=== PATIENT | male | born 1955 | race Caucasian/White ===

== ENCOUNTER → 2017-10-13 | Outpatient (CLI) | payer BC ==
--- NOTE | 2017-10-13 09:31 | MR ---
EXAMINATION TYPE: MR lumbar spine wo con DATE OF EXAM: 10/13/2017 COMPARISON: NONE HISTORY: 62-year-old male with pain and lumbago TECHNIQUE: Multiplanar, multisequence images of the lumbar spine were acquired. FINDINGS: Vertebral body heights are preserved and alignment is maintained. However, there is an S-shaped scoli osis of the spine. Multilevel degenerative disc disease with variable disc desiccation and bulging discs. Moderate disc interspace narrowing at L4-L5 especially towards the right which corresponds to the concavity of the patient's scoliotic curvature. There is associated edematous Modic type I endplate change here and a 1.4 cm inferior endplates most noted which could be acute to subacute. Facet arthropathy mid to lower lumbar spine. Mild heterogeneity of marrow signal without suspicious bone marrow replacement. Conus medullaris is normal. At T12-L1, there is diffuse disc bulge. This impresses into the onto the ventral thecal sac but does not cause significant spinal canal stenosis. Intraforaminal component of the disc bulge is present on the left causing moderate left neural foraminal stenosis. At L1-L2, diffuse disc bulge and mild facet degenerative change. This causes minimal bilateral inferi or neural foraminal narrowing. No significant spinal canal stenosis. At L2-L3, diffuse disc bulge with ligamentum flavum thickening and mild facet degenerative change. Th ere is impression on both the dorsal and ventral thecal sac without significant spinal canal stenosis . There is minimal inferior left and mild right neural foraminal stenosis. At L3-L4, mild diffuse disc bulge and facet degenerative change. Changes result in mild bilateral cecilio roforaminal stenosis without significant spinal canal stenosis. At L4-L5, diffuse disc bulge with ligamentum flavum thickening and hypertrophic facet arthropathy. Ch anges result in mild narrowing of the spinal canal with moderate bilateral neuroforaminal stenosis. D isc material may abut the bilateral traversing L5 nerve roots. At L5-S1, bulging disc is present with facet degenerative change. Disc material appears to abut the t raversing left S1 nerve root. Minimal narrowing of the left neuroforamen. No spinal canal stenosis. No prevertebral or paravertebral soft tissue abnormality. IMPRESSION: 1. S-shaped scoliosis with [id number] degenerative disc disease. Facet arthropathy mid to lower lumbar spine. 2. There is associated edematous Modic type I endplate change towards the right side of concavity at L4-L5. 3. Changes result in a mild spinal canal stenosis at L4-L5. Moderate bilateral neuroforaminal stenosi s on both sides at this level with disc material possibly abutting the bilateral traversing L5 nerve roots as well. 4. Disc material may impinge the traversing left S1 nerve root at the L5-S1 level. 5. Eccentric disc bulge at T12-L1 causes moderate left neural foraminal stenosis.
== END | disposition home or self-care (01) ==
LOC: RADMRIMAIN 07:13
PROVIDERS: ATTEND Family Medicine
DX: M48.061 Spinal stenosis, lumbar region without neurogenic claudication (principal); M99.73 Connective tissue and disc stenosis of intervertebral foramina of lumbar region; M51.25 Other intervertebral disc displacement, thoracolumbar region; M51.36 Other intervertebral disc degeneration, lumbar region; M46.96 Unspecified inflammatory spondylopathy, lumbar region; M41.9 Scoliosis, unspecified
CPT/HCPCS: 72148

== ENCOUNTER → 2018-03-26 | Outpatient (CLI) | payer BC ==
[2018-03-26 12:46] LABS: Appearance,Urine Clear (Clear); Bilirubin,Urine Negative (Negative); Blood,Urine Negative (Negative); Color,Urine Yellow; Glucose,Urine (UA) Negative (Negative); INR 1.1 (<1.2); Ketones,Urine 1+ (Negative); Leukocyte Esterase,Urine Negative (Negative); Nitrite,Urine Negative (Negative); Partial Thromboplastin Time 23.9 sec (22.0-30.0); Protein,Urine Negative (Negative); Prothrombin Time 10.4 sec (9.0-12.0); Urobilinogen,Urine <2.0 mg/dL (<2.0)
[2018-03-26 13:01] LABS: ALT 25 U/L (21-72); AST 27 U/L (17-59); Albumin 4.2 g/dL (3.5-5.0); Alkaline Phosphatase 55 U/L (38-126); Anion Gap 10 mmol/L; Blood Urea Nitrogen 21 mg/dL (9-20); Calcium 9.6 mg/dL (8.4-10.2); Carbon Dioxide 25 mmol/L (22-30); Chloride 106 mmol/L (98-107); Glucose 89 mg/dL (74-99); Potassium 4.6 mmol/L (3.5-5.1); Sodium 141 mmol/L (137-145); Total Bilirubin 0.8 mg/dL (0.2-1.3)
== END | disposition home or self-care (01) ==
LOC: LABPAT 11:23
PROVIDERS: ATTEND Orthopaedic Surgery
DX: Z01.810 Encounter for preprocedural cardiovascular examination (principal); Z01.812 Encounter for preprocedural laboratory examination
CPT/HCPCS: 80053; 81003; 85610; 85730; 87070; 93005

== ENCOUNTER → 2018-03-26 | Outpatient (CLI) | payer BC ==
[2018-03-26 12:42] LABS: Basophils % (A) 0 %; Eosinophils # (A) 0.1 k/uL (0-0.7); Eosinophils % (A) 1 %; HCT 42.6 % (39.0-53.0); HGB 14.3 gm/dL (13.0-17.5); Lymphocytes # (A) 1.2 k/uL (1.0-4.8); Lymphocytes % (A) 22 %; MCH 30.5 pg (25.0-35.0); MCHC 33.7 g/dL (31.0-37.0); MCV 90.5 fL (80.0-100.0); Monocytes # (A) 0.4 k/uL (0-1.0); Monocytes % (A) 7 %; Neutrophils # (A) 3.6 k/uL (1.3-7.7); Neutrophils % (A) 68 %; Platelet Count 208 k/uL (150-450); RBC 4.71 m/uL (4.30-5.90); RDW 12.5 % (11.5-15.5); WBC 5.3 k/uL (3.8-10.6)
[2018-03-26 19:28] LABS: Protein, Total 6.7 g/dL (6.2-8.2)
[2018-03-29 11:49] LABS: Albumin 4.32 g/dL (3.80-4.90); Gamma Globulin 0.76 g/dL (0.70-1.50)
== END | disposition home or self-care (01) ==
LOC: LABWHC1 11:20
PROVIDERS: ATTEND Physical Medicine & Rehabilitation
DX: M51.26 Other intervertebral disc displacement, lumbar region (principal); M51.36 Other intervertebral disc degeneration, lumbar region; M47.816 Spondylosis without myelopathy or radiculopathy, lumbar region; M41.86 Other forms of scoliosis, lumbar region; M16.12 Unilateral primary osteoarthritis, left hip
CPT/HCPCS: 36415; 84165; 85025

== ENCOUNTER 2018-04-27 07:13 | Inpatient (IN) | payer BC ==
[2018-04-20 11:10] VITALS: BMI 25.1
[~2018-04-27 07:13] MED LIST: ACETAMINOPHEN TAB 500 MG TAB PO ONE; MELOXICAM 7.5 MG TAB PO ONE; MIDAZOLAM 2 MG/2 ML VIAL IV PRN; ROPIVACAINE 246.25 MG, EPINEPHrine 0.5 MG, KETOROLAC 30 MG, cloNIDine HCL/PF 80 MCG, WA... MISCELLANE ONE; TRANEXAMIC ACID 1,000 MG in SODIUM CHLORIDE 0.9% 50 ML IVPB ONE; ceFAZolin IN SWFI 2 GM/20 ML SYRINGE IVP ONE; fentaNYL (PF) 50 MCG/ML 2 ML AMP IV PRN
[2018-04-27] MEDS: LACTATED RINGERS 1,000 ML IV SCH ×2 (07:57→14:13)
[2018-04-27] MEDS ORDERED: ONDANSETRON 4 MG/2 ML VIAL IVP ONE (07:59)
[2018-04-27] MEDS ORDERED: SCOPOLAMINE 1.5MG/72HR PATCH TRANSDERM ONE (07:59)
[2018-04-27] MEDS ORDERED: DEXAMETHASONE SOD PHOSPHATE 10 MG/ML 1 ML VIAL IV ONE (07:59)
[2018-04-27] MEDS ORDERED: LIDOCAINE 1% 20 ML VIAL (10MG/ML) FOR IV START INTRADERMA ONE (07:59)
[2018-04-27] MEDS ORDERED: HYDROcodone/APAP 5-325MG 1 EACH TAB PO PRN (09:43)
[2018-04-27] MEDS ORDERED: hydrOXYzine PAMOATE 25 MG CAP PO PRN (09:43)
[2018-04-27] MEDS ORDERED: MAGNESIUM HYDROXIDE 2,400 MG/10 ML CUP PO PRN (09:43)
[2018-04-27] MEDS ORDERED: NALOXONE 0.4 MG/ML 1 ML VIAL IV PRN (09:43)
[2018-04-27] MEDS ORDERED: DIAZEPAM 5 MG TAB PO PRN (09:43)
[2018-04-27] MEDS ORDERED: ONDANSETRON 4 MG/2 ML VIAL IVP PRN (09:43)
[2018-04-27] MEDS ORDERED: HYDROmorphone 1 MG/ML 1 ML SYRINGE IVP PRN ×3 (09:43)
[2018-04-27] MEDS ORDERED: MIDAZOLAM 2 MG/2 ML VIAL ONE (09:57)
[2018-04-27] MEDS ORDERED: TRANEXAMIC ACID 1,000 MG/10 ML VIAL ONE (09:57)
[2018-04-27] MEDS ORDERED: HEPARIN SODIUM,PORCINE 10,000 UNIT/ML 1 ML VIAL ONE (09:57)
[2018-04-27] MEDS ORDERED: SODIUM CHLORIDE 0.9% 100 ML BAG ONE (09:57)
[2018-04-27] MEDS ORDERED: GLYCOPYRROLATE 0.2 MG/ML 2 ML VIAL ONE (09:57)
[2018-04-27] MEDS ORDERED: KETAMINE 10 MG/ML 20 ML VIAL ONE (09:57)
[2018-04-27] MEDS ORDERED: ePHEDrine SULFATE/0.9% NACL/PF 50 MG/5 ML SYRINGE IV ONE (09:57)
[2018-04-27] MEDS ORDERED: ceFAZolin 3,000 MG in SODIUM CHLORIDE 0.9% IRRIGATIO 3,000 ML IRRIGATION ONE (09:57)
[2018-04-27] MEDS ORDERED: PROPOFOL 10 MG/ML 20 ML VIAL IV ONE (09:57)
[2018-04-27] MEDS ORDERED: fentaNYL (PF) 50 MCG/ML 2 ML AMP ONE (09:57)
[2018-04-27] MEDS ORDERED: SODIUM CHLORIDE 0.9% IRRIG 1,000 ML BTL IRRIGATION ONE (09:57)
[2018-04-27] MEDS ORDERED: LACTATED RINGERS 1,000 ML IV ONE (11:16)
--- NOTE | 2018-04-27 11:24 | P.OP ---
Date of Procedure: 04/27/18 Preoperative Diagnosis: Severe osteoarthritis left hip Postoperative Diagnosis: Severe osteoarthritis left hip Procedure(s) Performed: Left total hip arthroplasty with a direct anterior approach Implants: Ahn and nephew Polarstem size 7 standard Ahn & Nephew R3, 3 hole acetabular shell, 58 mm Ahn & Nephew reflection 6.5 mm cancellus screw, 20 mm, 25 mm Ahn & Nephew R3, XLPE 20 acetabular liner Ahn & Nephew Oxinium femoral head 36 m, +8 All components were press-fit. The articulation is Oxinium on polyethylene. Anesthesia: spinal Surgeon: Simone Manley Case Finishing Machine Adjuster #1: Rose Johnston Estimated Blood Loss (ml): 200 (75 mL returned with Cell Saver) Pathology: other (Femoral head) Condition: stable Disposition: PACU Indications for Procedure: After failure of conservative treatment we discussed the surgical and nonsurgical treatment options at length. Patient wishes to proceed with a total hip arthroplasty with a direct anterior approach. Complications specific to this procedure were discussed at length, including but not limited to infection, leg length discrepancy, dislocation, and nerve injury. Patient is aware of all these complications and informed consent was obtained Operative Findings: The operative findings are consistent with severe osteoarthritis of the left hip Description of Procedure: Patient was seen and evaluated in the preoperative area, consent was reviewed, and the surgical site was marked with a skin marker. Patient was then brought to the operating room and given prophylactic antibiotics intravenously. 1 g of Tranexamic acid was also given. A spinal anesthetic was administered by the anesthesia department. The patient was then placed on the Fanwood table with the bony prominences well-padded. The hip area was then prepped and draped in usual sterile fashion. A universal timeout was then performed, which confirmed the patient's name, surgical site, ALLERGIES, and procedure being performed. Next the incision site was located at 1 cm distal and 1 cm lateral to the anterior superior iliac spine. The skin and subcutaneous tissues were sharply incised. Incision was carefully dissected down to the fascia overlying the tensor fascia mitch muscle. This fascia was then incised in line with the incision. Next, using blunt finger dissection, the tensor fascia mitch muscle was dissected off its investing fascia. The muscle was then carefully retracted laterally with a cobra retractor over the lateral neck of the femur. Next, the circumflex vessels were identified and cauterized using the AquaMantis device. The anterior hip capsule was then exposed. The capsule was then opened and an inverted T fashion. Cobra retractors were then placed intracapsularly. The proximal femur was then visualized. The femoral neck was then osteotomized appropriate level above the lesser trochanter. Small amount of traction was placed with the Fanwood table. A small wedge of bone was then removed from the remaining femoral head. Next, using a corkscrew femoral head was easily removed from the acetabulum. On gross visual inspection, the femoral head had complete loss of articular cartilage in multiple periarticular osteophytes. Attention was then turned to the acetabulum. the acetabulum was exposed and any remaining labrum was excised. Sequential reaming of the acetabulum was performed using fluoroscopic guidance. When the appropriate size was reached, a trial was then placed. The position and fit of the trial was checked with fluoroscopy. The trial was then removed. Then, using fluoroscopic guidance, the final implant was impacted at 20 of anteversion and 40 of abduction, and fully seated in the acetabulum. 2 screws were then placed in the acetabulum. Again fluoroscopy was used to check position of the screws. Next, the liner was then impacted, with a 20 elevated liner located in the anterior superior quadrant. Component locking was confirmed. Attention was then directed to the femur. With the aid of the Fanwood table, the femur was externally rotated to approximately 130, extended, and abducted under the opposite leg. A side hook was then placed under the proximal femur, and the side hook elevator was used to elevate the proximal femur. Retractors were then placed. A capsular release was performed, as well as a release of the conjoined tendon, which afforded excellent visualization of the proximal femur. Next, a box osteotome was used to lateralize the proximal femur. A support merchandiser was then used to locate the femoral canal. Sequential broaching was then performed with appropriate size which afforded excellent fixation in the proximal femur. A trial was then placed with appropriate head and neck, and the hip was gently reduced with the aid of the Fanwood table. Fluoroscopy was then used to check position of the components, as well as to ensure equal leg lengths. The hip was then gently dislocated and the trials were then removed. Final implants were then impacted and the hip was again reduced. Final fluoroscopic x-rays confirmed that the components were in anatomic position, as well as equal leg lengths. The hip was also taken through range of motion, and found to be stable. The hip was then copiously irrigated with antibiotic solution with pulsatile lavage. The hip was then irrigated with Irrisept solution. The soft tissues were then injected with a ropivacaine solution, which consisted of 246.25 mg of ropivacaine, 0.5 mg of epinephrine, 30 mg of Toradol, 80 g of clonidine, and 48.45 mL of sterile water, for a total of 100 mL of fluid injected. A second dose of 1 g of Tranexamic acid was also given. the fascia was then closed with 2-0 strata fix suture. The subcutaneous tissue was closed with 3-0 Vicryl. The subcuticular tissue was closed with 3-0 strata fix suture. The skin was then closed with Dermabond glue and a sterile silver dressing. The patient was then transferred to the recovery room in stable condition. The school office assistant RENARD Palomo was required due to the complexity of surgery, and the need for skilled director medical surgical for positioning, draping, exposure, retraction, and closure of the wound.
--- NOTE | 2018-04-27 11:34 | XR ---
Fluoroscopy INDICATION: Pain FINDINGS: Fluoroscopy time: 35 seconds. Images obtained: 2. IMPRESSIONS: 1. Documentation of fluoroscopy.
--- NOTE | 2018-04-27 12:14 | XR ---
EXAMINATION TYPE: XR Hip Limited LT DATE OF EXAM: 04/27/2018 COMPARISON: None HISTORY: Status post left hip replacement TECHNIQUE: AP left hip FINDINGS: Femoral component and acetabular component in place. No acute fractures are evident. Postsu rgical changes are within the hip. IMPRESSION: 1. No acute fractures post left hip replacement.
--- NOTE | 2018-04-27 14:09 | P.CONS ---
History of Present Illness - Reason for Consult Consult date: 04/27/18 Medical management Requesting physician: Simone Manley - Chief Complaint Status post left total hip arthroplasty - History of Present Illness This is a 62-year-old male, patient of [facility]. He has a known past history of ulcer arthritis, hypertension, iron deficiency anemia and hyperlipidemia. Patient underwent a left total hip arthroplasty with a direct anterior approach with Dr. Manley today. Tolerated surgery well with no complications. Estimated blood loss 200 mL. Patient lying in bed comfortably. Reports that his hip pain is tolerable. Denies any chest pain or shortness of breath. Denies any nausea or vomiting, fever, chills, sweats, bowel movement changes or urinary symptoms. We have been consulted for medical management. Review of Systems Please refer to HPI otherwise unremarkable Past Medical History Past Medical History: Hyperlipidemia, Hypertension, Osteoarthritis (OA) History of Any Multi-Drug Resistant Organisms: None Reported Additional Past Surgical History / Comment(s): oral surgery Past Anesthesia/Blood Transfusion Reactions: No Reported Reaction Past Psychological History: Anxiety Smoking Status: Never smoker Past Alcohol Use History: Occasional Past Drug Use History: None Reported - Past Family History Mother Family Medical History: Congestive Heart Failure (CHF), Vascular Disorder Father Family Medical History: Hypertension Medications and Allergies Home Medications Medication Instructions Recorded Confirmed Type Aspirin [Adult Low Dose Aspirin EC] 162 mg PO DAILY 04/20/18 04/27/18 History Cetirizine HCl [Zyrtec] 10 mg PO DAILY 04/20/18 04/27/18 History Ferrous Sulfate [Feosol] 325 mg PO HS 04/20/18 04/27/18 History Ramipril [Altace] 5 mg PO DAILY 04/20/18 04/27/18 History Simvastatin [Zocor] 20 mg PO DAILY 04/20/18 04/27/18 History Acetaminophen/Diphenhydramine 1 tab PO Q4HR PRN 04/27/18 04/27/18 History [Tylenol PM Extra Strength] Allergies Allergy/AdvReac Type Severity Reaction Status Date / Time No Known Allergies Allergy Verified 04/27/18 12:18 Physical Exam Vitals: Vital Signs Temp Pulse Pulse Resp BP BP Pulse Ox 04/27/18 12:05 50 L 16 119/45 95 04/27/18 11:50 69 16 117/56 97 04/27/18 11:35 97.6 F 66 16 125/45 97 04/27/18 07:46 98.6 F 49 L 16 118/62 95 Intake and Output 04/26/18 04/27/18 04/27/18 22:59 06:59 14:59 Intake Total 1771 Output Total 200 Balance 1571 Intake: IV 1151 Oral 620 Output: Estimated Blood Loss 200 Other: Weight 81.739 kg Head normocephalic Neck supple Lungs clear to auscultation bilaterally no wheezing or crackles Heart regular rate and rhythm S1-S2, no rub or gallop Abdomen is soft nontender nondistended positive bowel sounds no hepatosplenomegaly Extremities no edema. LUCIO hose and SCDs in place. Left hip dressing clean dry and intact. Patient is able to wiggle his toes on the left foot. Neuro alert and orientated to 3 Assessment and Plan Assessment: 1. Severe osteoarthritis of the left hip: Status post Left total hip arthroplasty with direct anterior approach. Continue with orthopedic postop orders. Continue DVT prophylaxis with aspirin 325 mg twice a day, LUCIO hose and SCDs. Continue pain control per orthopedic protocol. Continue PT OT 2. Essential hypertension: Blood pressures are stable. Blood pressure 119/45. Depending on how blood pressures look tomorrow we'll restart his Ramipril 3. Hyperlipidemia continue Zocor 4. Iron deficiency anemia continue with the ferrous sulfate 325 mg daily. Monitor CBC closely GI prophylaxis Pepcid and DVT prophylaxis aspirin 325 mg twice a day with SCDs and LUCIO hose Thank you for this consultation. We'll continue to follow along during patient' s hospitalization. Time with Patient: Greater than 30 (Greater than 60% of the total time spent in counseling and coordination of care.I performed an examination of the patient and discussed their management with the physician Bed Control Specialist. I have reviewed the Physician Bed Control Specialist's notes and agree with the documented findings and plan of care)
[2018-04-27] MEDS: SODIUM CHLORIDE 0.9% 1,000 ML IV SCH ×2 (17:12→17:16)
[2018-04-27] MEDS: HYDROcodone/APAP 5-325MG 1 EACH TAB PO PRN (17:16)
[2018-04-27] MEDS ORDERED: SENNOSIDES-DOCUSATE SODIUM 1 EACH TAB PO SCH (21:00)
[2018-04-27] MEDS ORDERED: FERROUS SULFATE 325 MG TAB PO SCH (21:00)
[2018-04-27] MEDS: ASPIRIN 325 MG TAB PO SCH (21:33)
[2018-04-28] MEDS: HYDROcodone/APAP 5-325MG 1 EACH TAB PO PRN ×2 (03:07→12:21)
[2018-04-28] MEDS: SODIUM CHLORIDE 0.9% 1,000 ML IV SCH (03:08)
[2018-04-28 07:48] LABS: ALT 27 U/L (21-72); AST 34 U/L (17-59); Albumin 2.8 g/dL (3.5-5.0); Alkaline Phosphatase 30 U/L (38-126); Anion Gap 3 mmol/L; Blood Urea Nitrogen 16 mg/dL (9-20); Calcium 8.7 mg/dL (8.4-10.2); Carbon Dioxide 25 mmol/L (22-30); Chloride 109 mmol/L (98-107); Glucose 95 mg/dL (74-99); Potassium 4.4 mmol/L (3.5-5.1); Sodium 137 mmol/L (137-145)
[2018-04-28 07:51] LABS: Basophils % (A) 0 %; Eosinophils % (A) 0 %; HCT 31.6 % (39.0-53.0); Lymphocytes # (A) 1.2 k/uL (1.0-4.8); Lymphocytes % (A) 16 %; MCH 31.5 pg (25.0-35.0); MCHC 33.7 g/dL (31.0-37.0); MCV 93.5 fL (80.0-100.0); Mean Platelet Volume 7.8; Monocytes # (A) 0.7 k/uL (0-1.0); Monocytes % (A) 9 %; Neutrophils # (A) 5.4 k/uL (1.3-7.7); Neutrophils % (A) 74 %; Platelet Count 143 k/uL (150-450); RBC 3.37 m/uL (4.30-5.90); RDW 12.5 % (11.5-15.5); WBC 7.4 k/uL (3.8-10.6)
[2018-04-28 07:54] LABS: HGB 10.6 gm/dL (13.0-17.5)
[2018-04-28 08:11] VITALS: BP 106/62; PULSE 54; RESP 12; TEMP 98.5
[2018-04-28] MEDS: ASPIRIN 325 MG TAB PO SCH (08:11)
[2018-04-28] MEDS ORDERED: ATORVASTATIN 10 MG TAB PO SCH (09:00)
[2018-04-28] MEDS ORDERED: MELOXICAM 7.5 MG TAB PO SCH (09:00)
[2018-04-28] MEDS ORDERED: FAMOTIDINE 20 MG TAB PO SCH (09:00)
--- NOTE | 2018-04-28 09:28 | P.DS ---
Providers Date of admission: 04/27/18 07:13 Expected date of discharge: 04/28/18 Attending physician: Simone Manley Consults: 04/27/18 09:43 Consult Physician Routine Consulting Provider: Isabella Connelly Consult Reason/Comments: medical management Do you want consulting provider notified?: Yes Primary care physician: Geni Stewart - Discharge Diagnosis(es) (1) Primary osteoarthritis of left hip Current Visit: Yes Status: Acute (2) S/P total hip arthroplasty Current Visit: Yes Status: Acute Hospital Course: This is a 62-year-old male with known history of degenerative arthritis of the left hip. The patient presents for evaluation. After discussion and consideration patient elects to proceed with total hip arthroplasty. The patient is seen preoperatively by Dr. Manley and medically cleared for surgery by their primary care physician. Patient is admitted to [facility] on 04/27/2018 for total hip arthroplasty. The procedures performed without complication or sequelae. The patient is doing well postoperatively. Labs and vital signs are stable on day of discharge. On day of discharge patient's hip incision is healing well. There is minimal erythema. There is no drainage noted at this time. There is minimal soft tissue swelling to the hip and thigh. Patient has full foot and ankle motion without difficulty or pain. Neurovascular status to the left lower extremity is intact. Patient is discharged home in good condition. Please see med rec for accurate list of home medications. Plan - Discharge Summary Discharge Rx Participant: No New Discharge Prescriptions: New Aspirin 325 mg PO BID #60 tab HYDROcodone/APAP 5-325MG [Ames 5-325] 1 - 2 tab PO Q4-6H PRN #84 tab PRN Reason: Pain Sennosides [Senokot] 1 tab PO BID #60 tablet No Action Ramipril [Altace] 5 mg PO DAILY Ferrous Sulfate [Feosol] 325 mg PO HS Simvastatin [Zocor] 20 mg PO DAILY Aspirin [Adult Low Dose Aspirin EC] 162 mg PO DAILY Cetirizine HCl [Zyrtec] 10 mg PO DAILY Acetaminophen/Diphenhydramine [Tylenol PM Extra Strength] 1 tab PO Q4HR PRN PRN Reason: Pain Discharge Medication List Aspirin [Adult Low Dose Aspirin EC] 162 mg PO DAILY 04/20/18 [History] Cetirizine HCl [Zyrtec] 10 mg PO DAILY 04/20/18 [History] Ferrous Sulfate [Feosol] 325 mg PO HS 04/20/18 [History] Ramipril [Altace] 5 mg PO DAILY 04/20/18 [History] Simvastatin [Zocor] 20 mg PO DAILY 04/20/18 [History] Acetaminophen/Diphenhydramine [Tylenol PM Extra Strength] 1 tab PO Q4HR PRN 12/07 [History] Aspirin 325 mg PO BID #60 tab 04/28/18 [Rx] HYDROcodone/APAP 5-325MG [Ames 5-325] 1 - 2 tab PO Q4-6H PRN #84 tab 04/28/18 [ Rx] Sennosides [Senokot] 1 tab PO BID #60 tablet 04/28/18 [Rx] Follow up Appointment(s)/Referral(s): Simone Manley DO [Doctor of Osteopathic Medicine] - 2 Weeks Activity/Diet/Wound Care/Special Instructions: Weightbearing as tolerated with walker. Leave dressing intact. Dressing may be removed by home care nurse in 10 days. May shower with dressing on. Follow-up with [facility] in 2 weeks, please call with any questions or concerns [phone]. Discharge Disposition: HOME WITH HOME HEALTH SERVICES
[2018-04-28] MEDS: LACTATED RINGERS 1,000 ML IV SCH (10:27)
--- NOTE | 2018-04-28 10:55 | P.PN ---
Subjective Progress Note Date: 04/28/18 This is a 62-year-old male, patient of [facility]. He has a known past history of ulcer arthritis, hypertension, iron deficiency anemia and hyperlipidemia. Patient underwent a left total hip arthroplasty with a direct anterior approach with Dr. Manley today. Tolerated surgery well with no complications. Estimated blood loss 200 mL. Patient lying in bed comfortably. Reports that his hip pain is tolerable. Denies any chest pain or shortness of breath. Denies any nausea or vomiting, fever, chills, sweats, bowel movement changes or urinary symptoms. We have been consulted for medical management. On 04/28/2018 patient is currently sitting up in chair. Patient is complaining of some left hip pain and swelling. Orthopedic services and to evaluate site. No concerns at this time. Patient is eager to go home today. This time patient denies chest pain or shortness of breath. Patient denies nausea vomiting or diarrhea. Patient denies any urinary burning or frequency Objective - Vital Signs Vital signs: Vital Signs Temp 98.5 F 04/28/18 07:00 Pulse 54 L 04/28/18 07:00 Resp 12 04/28/18 07:00 BP 106/62 04/28/18 07:00 Pulse Ox 95 04/28/18 07:00 Intake & Output 04/27/18 04/28/18 04/28/18 18:59 06:59 18:59 Intake Total 2541 225 Output Total 200 Balance 2341 225 Weight 81.739 kg Intake: IV 1151 Intake, IV Titration 150 225 Amount Sodium Chloride 0.9% 1, 150 225 000 ml @ 75 mls/hr IV . [id number] [id number] Rx#:[id number] Oral 1240 Output: Estimated Blood Loss 200 Other: Voiding Method Toilet # Voids 1 1 - Exam Head normocephalic Neck supple Lungs clear to auscultation bilaterally no wheezing or crackles Heart regular rate and rhythm S1-S2, no rub or gallop Abdomen is soft nontender nondistended positive bowel sounds no hepatosplenomegaly Extremities no edema. LUCIO hose and SCDs in place. Left hip dressing clean dry and intact. Slight edema and bruising noted around left hip dressing. Neuro alert and orientated to 3 - Labs CBC & Chem 7: 04/28/18 06:57 11/07/18 06:57 Labs: Abnormal Lab Results - Last 24 Hours (Table) 04/28/18 04/28/18 Range/Units 06:57 06:57 RBC 3.37 L (4.30-5.90) m/uL Hgb 10.6 L D (13.0-17.5) gm/dL Hct 31.6 L (39.0-53.0) % Plt Count 143 L (150-450) k/uL Chloride 109 H (98-107) mmol/L Alkaline Phosphatase 30 L (38-126) U/L Total Protein 5.0 L (6.3-8.2) g/dL Albumin 2.8 L (3.5-5.0) g/dL Assessment and Plan Assessment: 1. Severe osteoarthritis of the left hip: Status post Left total hip arthroplasty with direct anterior approach. Continue with orthopedic postop orders. Continue DVT prophylaxis with aspirin 325 mg twice a day, LUCIO hose and SCDs. Continue pain control per orthopedic protocol. Continue PT OT 2. Essential hypertension: Blood pressures are stable. Blood pressure 119/45. Heart rate in the 50s. Blood pressure 103/50. Will DC ramipril this time. Patient to follow-up closely with PCP in regards to restarting ramipril 3. Hyperlipidemia continue Zocor 4. Iron deficiency anemia continue with the ferrous sulfate 325 mg daily. hemoglobin 10.6. Patient to be maintained on ferrous sulfate. patient to follow-up closely with PCP and consulting providers. Repeat CBC will be ordered for two days GI prophylaxis Pepcid and DVT prophylaxis aspirin 325 mg twice a day with SCDs and LUCIO hose Thank you for this consultation. We'll continue to follow along during patient' s hospitalization. I performed an examination of the patient and discussed their management with the Nurse Practitioner. I have reviewed the Nurse Practitioner's notes and agree with the documented findings and plan of care
== END 2018-04-28 14:01 | disposition home health service (06) | DRG 470 ==
LOC: 2ORMAIN 07:13 → 4SSUR 11:38
PROVIDERS: ADMIT Orthopaedic Surgery; ATTEND Orthopaedic Surgery
PROC: 0SRB06A Replacement of Left Hip Joint with Oxidized Zirconium on Polyethylene Synthetic Substitute, Uncemented, Open Approach (ICD-10-PCS; principal; 2018-04-27 09:15)
DX: M16.12 Unilateral primary osteoarthritis, left hip (principal); I10 Essential (primary) hypertension; E78.5 Hyperlipidemia, unspecified; D50.9 Iron deficiency anemia, unspecified; F41.9 Anxiety disorder, unspecified; R26.9 Unspecified abnormalities of gait and mobility; Z79.82 Long term (current) use of aspirin; Z79.899 Other long term (current) drug therapy; Z82.49 Family history of ischemic heart disease and other diseases of the circulatory system
CPT/HCPCS: 36415; 73501; 80053; 85025; 86850; 86891; 86900; 86901; 88300

== ENCOUNTER → 2019-12-08 | Day surgery (SDC) | payer BC ==
[2019-12-06 10:47] VITALS: BMI 25.5
[~2019-12-08] MED LIST changes: -ACETAMINOPHEN TAB 500 MG TAB PO ONE; +LACTATED RINGERS 1,000 ML IV ONE; +LACTATED RINGERS 1,000 ML IV SCH; -MELOXICAM 7.5 MG TAB PO ONE; -MIDAZOLAM 2 MG/2 ML VIAL IV PRN; +MIDAZOLAM 2 MG/2 ML VIAL ONE; +PROPOFOL 10 MG/ML 20 ML VIAL IV ONE; -ROPIVACAINE 246.25 MG, EPINEPHrine 0.5 MG, KETOROLAC 30 MG, cloNIDine HCL/PF 80 MCG, WA... MISCELLANE ONE; -TRANEXAMIC ACID 1,000 MG in SODIUM CHLORIDE 0.9% 50 ML IVPB ONE; -ceFAZolin IN SWFI 2 GM/20 ML SYRINGE IVP ONE; -fentaNYL (PF) 50 MCG/ML 2 ML AMP IV PRN; +fentaNYL (PF) 50 MCG/ML 2 ML AMP ONE
--- NOTE | 2019-12-08 09:29 | P.GSHP ---
History of Present Illness H&P Date: 12/08/19 Chief Complaint: GERD, screen colonoscopy This a 64-year-old male who has issues with GERD. He presents today for EGD and screening colonoscopy. Past Medical History Past Medical History: Hyperlipidemia, Hypertension, Osteoarthritis (OA), Pneumonia Additional Past Medical History / Comment(s): DDD LOWER BACK, OCCASIONAL GERD, STATES SOME ABDOMEN PAIN, STATES SLOW DIGESTIVE SYSTEM. History of Any Multi-Drug Resistant Organisms: None Reported Past Surgical History: Joint Replacement Additional Past Surgical History / Comment(s): oral surgery, TOTAL LEFT HIP (APR 2018) Past Anesthesia/Blood Transfusion Reactions: No Reported Reaction Past Psychological History: Anxiety Smoking Status: Never smoker Past Alcohol Use History: Occasional Past Drug Use History: None Reported - Past Family History Mother Family Medical History: Congestive Heart Failure (CHF), Vascular Disorder Father Family Medical History: Hypertension Medications and Allergies Home Medications Medication Instructions Recorded Confirmed Type Ferrous Sulfate [Iron (65 MG 325 mg PO DAILY 04/20/18 12/06/19 History Elemental)] Simvastatin [Zocor] 20 mg PO DAILY 04/20/18 12/06/19 History Aspirin [Adult Low Dose Aspirin EC] 162 mg PO DAILY 12/06/19 12/06/19 History Ramipril [Altace] 5 mg PO DAILY 12/06/19 12/06/19 History Allergies Allergy/AdvReac Type Severity Reaction Status Date / Time No Known Allergies Allergy Verified 12/08/19 09:21 Surgical - Exam - General well developed, well nourished, no distress - Eyes PERRL - ENT normal pinna - Neck no masses - Respiratory normal expansion - Cardiovascular Rhythm: regular - Abdomen Abdomen: soft, non tender Assessment and Plan Assessment: GERD. We'll perform EGD and screening colonoscopy
[2019-12-08 09:31] VITALS: RESP 16; TEMP 98.2
--- NOTE | 2019-12-08 09:48 | P.OP ---
Date of Procedure: 12/08/19 Preoperative Diagnosis: GERD Screening colonoscopy Postoperative Diagnosis: Antral gastritis Hiatal hernia Esophagitis Procedure(s) Performed: EGD. Colonoscopy Anesthesia: HERBIE Surgeon: Crispin Dolan Pathology: other (Antrum, esophagus) Condition: stable Disposition: PACU Description of Procedure: The patient's placed on the endoscopy table in the lateral position. He received IV sedation. The gastro-placed oropharynx passed in the esophagus and stomach. Scope then placed through the pylorus. The first and second portion of the duodenum appeared normal. Scope was then brought back the antrum and this appeared mildly inflamed. A biopsies performed. Scope was unretroflexed and remainder of the stomach appeared normal. Patient moderate size hiatal hernia. The GE junction was at 38 cm. The distal esophagus inflamed and a biopsies performed. The proximal esophagus appeared normal. Scope was withdrawn for patient. Next digital rectal exam was performed. There were no abnormalities. Flexible colonoscope was then placed patient anus and passed throughout the entire colon. Ileocecal valve sutures. The cecum, ascending and transverse colon appeared normal. The descending and sigmoid colon was visualized. This appeared normal. Scope was then brought back the rectum and this appeared normal. Scope was withdrawn for patient.
[2019-12-08 09:52] VITALS: PULSE 51
[2019-12-08 10:09] VITALS: BP 126/69
== END ==
LOC: ORWHC2ENDO 09:05
PROVIDERS: ATTEND Surgery
DX: Z12.11 Encounter for screening for malignant neoplasm of colon (principal); K22.9 Disease of esophagus, unspecified; K44.9 Diaphragmatic hernia without obstruction or gangrene; K29.70 Gastritis, unspecified, without bleeding; K21.0 Gastro-esophageal reflux disease with esophagitis; E78.5 Hyperlipidemia, unspecified; I10 Essential (primary) hypertension; M19.90 Unspecified osteoarthritis, unspecified site; M51.36 Other intervertebral disc degeneration, lumbar region; Z87.01 Personal history of pneumonia (recurrent); Z96.642 Presence of left artificial hip joint; F41.9 Anxiety disorder, unspecified; Z82.49 Family history of ischemic heart disease and other diseases of the circulatory system; Z79.899 Other long term (current) drug therapy; Z79.82 Long term (current) use of aspirin
CPT/HCPCS: 88305; 43239; J2250; J3010; J2704; G0121; 45378

== ENCOUNTER → 2023-05-13 | Outpatient (CLI) | payer MEDICARE ==
--- NOTE | 2023-05-13 12:06 | NM ---
EXAMINATION TYPE: NM gastric emptying static DATE OF EXAM: 05/13/2023 COMPARISON: NONE CLINICAL INDICATION: Male, 67 years old with history of K31.84 GASTROPARESIS; Following administration of 1.9 mCi Tc 99m Sulfur Colloid with 4 ounces of eggs, 2 pieces of toast wi th butter & jelly, 8 ounces of water, anterior and posterior projection images of the abdomen were ob tained 10 minutes post ingestion. Patient Emptying Values 1 Hour 44 % (70-10%) 2 Hours 85 % (> 40%) 3 Hours 98 % (> 70%) 4 Hours 100 % (> 90%) Gastroesophageal reflux: None IMPRESSION: Normal gastric emptying times as above. No scintigraphic evidence for gastroparesis.
== END | disposition home or self-care (01) ==
LOC: RADNMMAIN 06:55
PROVIDERS: ATTEND Family Medicine
DX: K31.84 Gastroparesis (principal); K52.9 Noninfective gastroenteritis and colitis, unspecified
CPT/HCPCS: 78264; A9541

== ENCOUNTER → 2024-09-16 | Outpatient (CLI) | payer MEDICARE ==
--- NOTE | 2024-09-16 13:08 | CA ---
Exercise Stress Test Report Name: Adan Vo Exam Date: 09/16/2024 11:45 Exam Location: [place] Stress Ht (in): Wt (lb): BSA: Ordering Phys: Marly Cai DO Referring Phys: Melia Pate PAC Technologist: morris cole Age: 69 Gender: M : 1955 Procedure CPT: Indications: R00.1 bradycardia ICD-10 Codes: Patient History: Abnormal ECG and bradycardia Medications: RAMAPRIL,,,, SIMVASTATIN,,,, BACKAFIN,,, Meds past 24 hrs: Pretest Chest Pain: STRESS TEST Jesse Protocol Exercise Duration (min:sec): 05:[address] Depressions (mm): Angina Score: Saenz Score: Resting HR (bpm): 54 Peak HR (bpm): 140 Resting BP (mmHg): 150 / 73 Peak BP (mmHg): 205 / 76 MPHR: 150 Target HR: 128 % MPHR: 93 METS: 7.1 Total Dose: Peak Dose: Atropine: Double Product: [id number] BP Response: Stress Termination: TARGET HR REACHED/MAX EXERTION Stress Symptoms: NO SYMPTOMS Stress Summary: ECG ANALYSIS Resting ECG: Normal sinus rhythm normal axis normal intervals Stress ECG: Patient exercised on Jesse protocol for 5 minutes achieving 85% of predicted maximal heart rate without chest pain there was [address] segment depression noted in the inferolateral leads CONCLUSIONS Limited exercise tolerance Abnormal stress test by EKG criteria Dr. Wes Morris MD (Electronically Signed) Final Date: 16 September 2024 13:07
== END | disposition home or self-care (01) ==
LOC: RADNMMAIN 11:20
PROVIDERS: ATTEND Family Medicine
DX: R00.1 Bradycardia, unspecified (principal); R94.39 Abnormal result of other cardiovascular function study
CPT/HCPCS: 93017

== ENCOUNTER 2024-09-22 10:52 | Observation (INO) | payer MEDICARE ==
--- NOTE | 2024-09-22 12:36 | ED ---
General Adult HPI <Salvatore Lobo - Last Filed: 09/22/24 14:35> <Juana Reece - Last Filed: 09/22/24 15:46> - General Source: patient Mode of arrival: ambulatory Limitations: no limitations <Steffi Mi - Last Filed: 09/22/24 16:10> - General Chief complaint: Syncope Stated complaint: Syncope Time Seen by Provider: 09/22/24 10:59 - History of Present Illness Initial comments: Patient is a 69-year-old male with past medical history of hypertension who presented to the ER with syncopal episode. Patient states this morning he had an unwitnessed fall from standing at home and approximate downtime to be 30 minutes. Patient states he awoke hunched over. States he must of scratched his right elbow on the table that he felt. Patient states he does have history of sinus bradycardia. Family history significant for sinus bradycardia in his father which required pacemaker and defibrillator placement and his mother had CHF. Patient states he did monitor which recorded events of bradycardia down to 34. He also completed stress test. Patient wants to have appointment with Dr. Gonzalez regarding evaluation for pacemaker. (Steffi Mi) - Related Data Home Medications Medication Instructions Recorded Confirmed Simvastatin [Zocor] 20 mg PO W/SUPPER 04/20/18 09/22/24 ramipriL [Altace] 5 mg PO W/SUPPER 12/06/19 09/22/24 Baclofen 10 - 20 mg PO HS PRN 09/22/24 09/22/24 valACYclovir HCL [Valacyclovir] 1,000 mg PO DAILY PRN 09/22/24 09/22/24 Allergies Allergy/AdvReac Type Severity Reaction Status Date / Time No Known Allergies Allergy Verified 09/22/24 11:38 Review of Systems ROS Other: All systems not noted in ROS Statement are negative. <Salvatore Lobo - Last Filed: 09/22/24 14:35> ROS Other: All systems not noted in ROS Statement are negative. <Juana Reece - Last Filed: 09/22/24 15:46> ROS Other: All systems not noted in ROS Statement are negative. Constitutional: Denies: fever, chills Eyes: Denies: eye pain, eye discharge Respiratory: Denies: cough, dyspnea, wheezes Cardiovascular: Reports: syncope. Denies: chest pain, palpitations, dyspnea on exertion, orthopnea, edema Endocrine: Denies: fatigue Gastrointestinal: Denies: abdominal pain, nausea, vomiting, diarrhea, constipation Genitourinary: Denies: urgency, dysuria, frequency Musculoskeletal: Reports: myalgia (bilateral calf tenderness with palpation) Skin: Denies: rash, lesions Neurological: Denies: headache, weakness, numbness, paresthesias <Steffi Mi Filed: 09/22/24 16:10> ROS Statement: Those systems with pertinent positive or pertinent negative responses have been documented in the HPI. Past Medical History Past Medical History: GERD/Reflux, Hyperlipidemia, Hypertension, Osteoarthritis (OA), Pneumonia Additional Past Medical History / Comment(s): DDD LOWER BACK, OCCASIONAL GERD, STATES SOME ABDOMEN PAIN, STATES SLOW DIGESTIVE SYSTEM change in bowel habits,indigestions.has had a occasional cough last month,. Bradycardia History of Any Multi-Drug Resistant Organisms: None Reported Past Surgical History: Joint Replacement Additional Past Surgical History / Comment(s): oral surgery, TOTAL LEFT HIP (APR 2018) Past Anesthesia/Blood Transfusion Reactions: No Reported Reaction Past Psychological History: No Psychological Hx Reported Smoking Status: Never smoker Past Alcohol Use History: Occasional Past Drug Use History: None Reported - Past Family History Mother Family Medical History: Congestive Heart Failure (CHF), Vascular Disorder Father Family Medical History: Hypertension <Steffi Mi Filed: 09/22/24 16:10> General Exam Limitations: no limitations Head exam: Present: atraumatic, normocephalic Eye exam: Present: normal appearance, PERRL Neck exam: Present: normal inspection. Absent: tenderness Respiratory exam: Present: normal lung sounds bilaterally. Absent: wheezes, rales, rhonchi Cardiovascular Exam: Present: regular rate, normal rhythm, normal heart sounds GI/Abdominal exam: Present: soft, normal bowel sounds. Absent: distended, tenderness, guarding, rebound Extremities exam: Present: calf tenderness (Bilaterally) Neurological exam: Present: alert, oriented X3, CN II-XII intact Psychiatric exam: Present: normal affect, normal mood Skin exam: Present: warm, dry, abrasion (Small abrasion noted on right elbow) <MiSteffi hawley Filed: 09/22/24 16:10> Course Vital Signs 09/22/24 09/22/24 09/22/24 10:55 12:29 13:20 Temperature 97.3 F L Pulse Rate 56 L 51 L Pulse Rate [ 55 L Sitting Scrap Picker] Pulse Rate [ 62 Standing Scrap Picker ] Pulse Rate [ 48 L Supine Scrap Picker] Respiratory 18 18 20 Rate Blood Pressure 132/62 138/64 Blood Pressure 127/63 [Right Arm Sitting] Blood Pressure 143/73 [Right Arm Standing] Blood Pressure 122/62 [Right Arm Supine] O2 Sat by Pulse 96 98 98 Oximetry Medical Decision Making - Lab Data Result diagrams: 09/22/24 12:37 09/22/24 12:37 <Salvatore Lobo - Last Filed: 09/22/24 14:35> - Lab Data Result diagrams: 09/22/24 12:37 09/22/24 12:37 <Juana Reece - Last Filed: 09/22/24 15:46> - Lab Data Result diagrams: 09/22/24 12:37 09/22/24 12:37 - EKG Data EKG shows normal: sinus rhythm, axis, intervals, QRS complexes, ST-T waves Rate: bradycardia <Steffi Mi - Last Filed: 09/22/24 16:10> - Medical Decision Making I personally saw the patient and performed the critical portion of the service. I discussed the patient care with the Dr. Kaminski. I directed management, care planning and final disposition of the patient. This includes, but not limited to, review of all lab work, radiological studies, EKG's, consultations, vital signs, and nursing notes. EKG interpreted by me (3pts min.) @Sinus bradycardia rate of 52. Normal axis. Normal intervals. Normal QRS. Prominent T waves. X-Rays interpreted by me (1 pt min.) @Chest x-ray shows no acute process CT interpreted by me ( 1pt min.) @None U/S interpreted by me (1 pt min.) @Ultrasound without evidence of DVT Critical care time of 0 minutes excluding separately billable procedures was spent in conjunction with critical care activities provided by the Resident and Attending simultaneously. I was present during no procedures for all critical portions of the procedure and as immediately available to furnish service during the entire procedure. Patient with syncopal episode. Patient has history of bradycardia and during a previous Holter monitor heart rate has been as low as 34. Patient is symptom- free at this time. Exam completed. Patient and family updated on concerns. Heart rate is in the low 50s on event management consultant. Patient placed on event management consultant secondary to syncope and bradycardia. (Salvatore Lobo) Was pt. sent in by a medical professional or institution (RENARD Hanks, SHOPPER MARKETING MANAGER, urgent care, hospital, or intermediate...) When possible be specific @ -No Did you speak to anyone other than the patient for history (EMS, parent, family, police, friend...)? What history was obtained from this source @ -No Did you review nursing and triage notes (agree or disagree)? Why? @ -I reviewed and agree with nursing and triage notes Were old charts reviewed (outside hosp., previous admission, EMS record, old EKG, old radiological studies, urgent care reports/EKG's, intermediate records)? Report findings @ -No old charts were reviewed Differential Diagnosis? @ -Differential Syncope: Valvular disease, hypertrophic cardiomyopathy, pulmonary embolism, tamponade, tachycardia, bradycardia, ND, hypovolemia, hemorrhage, dissection, anemia, intracranial hemorrhage, seizure, hypoglycemia, carbon monoxide poisoning, this is not meant to be an all-inclusive list. EKG interpreted by me (3pts min.). @ -Sinus bradycardia rate of 52. Normal axis. Normal intervals. Normal QRS. Prominent T waves. X-rays interpreted by me (1pt min.). @ -None done CT interpreted by me (1pt min.). @ -None done U/S interpreted by me (1pt. min.). @ -Bilateral venous Doppler of lower extremities were negative for DVT What testing was considered but not performed or refused? (CT, X-rays, U/S, labs)? Why? @ -None What meds were considered but not given or refused? Why? @ -None Did you discuss the management of the patient with other professionals (professionals i.e. RENARD Hanks, SHOPPER MARKETING MANAGER, lab, RT, psych nurse, rn social work, tip length checker, teacher, parole or probation officer, outpatient case manager)? Give summary @ -Case discussed with attending ED physician Dr. Lobo. Case was discussed with Dr. Crabtree from [facility] and patient was admitted to inpatient for symptomatic bradycardia. Was smoking cessation discussed for >3mins.? @ -No Was critical care preformed (if so, how long)? @ -No Were there social determinants of health that impacted care today? How? (Homelessness, low income, unemployed, alcoholism, drug addiction, transportation, low edu. Level, literacy, decrease access to med. care, fdc, rehab)? @ -No Was there de-escalation of care discussed even if they declined (Discuss DNR or withdrawal of care, Hospice)? DNR status @ -No What co-morbidities impacted this encounter? (DM, HTN, Smoking, COPD, CAD, Cancer, CVA, ARF, Chemo, Hep., AIDS, mental health diagnosis, sleep apnea, morbid obesity)? @ -None Was patient admitted / discharged? Hospital course, mention meds given and route, prescriptions, significant lab abnormalities, going to OR and other pertinent info. @ -Patient will be admitted for evaluation of pacemaker placement Undiagnosed new problem with uncertain prognosis? @ -No Drug Therapy requiring intensive monitoring for toxicity (Heparin, Nitro, Insulin, Cardizem)? @ -No Were any procedures done? @ -No Diagnosis/symptom? @ -Symptomatic bradycardia with syncopal episode Acute, or Chronic, or Acute on Chronic? @ -Acute Uncomplicated (without systemic symptoms) or Complicated (systemic symptoms)? @ -Uncomplicated Side effects of treatment? @ -No Exacerbation, Progression, or Severe Exacerbation? @ -No Poses a threat to life or bodily function? How? (Chest pain, USA, ND, pneumonia, PE, COPD, DKA, ARF, appy, cholecystitis, CVA, Diverticulitis, Homicidal, Suicidal, threat to staff... and all critical care pts) @ -No (Steffi Mi) - Lab Data Lab Results 09/22/24 09/22/24 09/22/24 Range/Units 12:37 12:37 12:37 WBC 11.4 H (3.8-10.6) k/uL RBC 4.69 (4.30-5.90) m/uL Hgb 14.8 (13.0-17.5) gm/dL Hct 44.8 (39.0-53.0) % MCV 95.5 (80.0-100.0) fL MCH 31.6 (25.0-35.0) pg MCHC 33.1 (31.0-37.0) g/dL RDW 12.7 (11.5-15.5) % Plt Count 202 (150-450) k/uL MPV 9.2 Neutrophils % 88 % Lymphocytes % 6 % Monocytes % 5 % Eosinophils % 0 % Basophils % 0 % Neutrophils # 10.0 H (1.3-7.7) k/uL Lymphocytes # 0.7 L (1.0-4.8) k/uL Monocytes # 0.6 (0-1.0) k/uL Eosinophils # 0.0 (0-0.7) k/uL Basophils # 0.0 (0-0.2) k/uL PT 10.8 (10.0-12.5) sec INR 1.0 (<1.2) APTT 21.3 L (22.0-30.0) sec Sodium 139 (137-145) mmol/L Potassium 4.1 (3.5-5.1) mmol/L Chloride 104 (98-107) mmol/L Carbon Dioxide 24 (22-30) mmol/L Anion Gap 11 mmol/L BUN 15 (9-20) mg/dL Creatinine 0.93 (0.66-1.25) mg/dL Est GFR (CKD-EPI)AfAm >90 (>60 ml/min/1.73 sqM) Est GFR (CKD-EPI)NonAf 83 (>60 ml/min/1.73 sqM) Glucose 119 H (74-99) mg/dL Calcium 9.4 (8.4-10.2) mg/dL Magnesium 2.5 H (1.6-2.3) mg/dL Total Bilirubin 0.7 (0.2-1.3) mg/dL AST 34 (17-59) U/L ALT 21 (4-49) U/L Alkaline Phosphatase 82 (38-126) U/L Total Protein 6.9 (6.3-8.2) g/dL Albumin 4.4 (3.5-5.0) g/dL TSH 2.720 (0.465-4.680) mIU/L Disposition <Salvatore Lobo - Last Filed: 09/22/24 14:35> Is patient prescribed a controlled substance at d/c from ED?: No Time of Disposition: 15:42 Decision to Admit Reason: Admit from EC Decision Date: 09/22/24 Decision Time: 15:42 <Juana Reece - Last Filed: 09/22/24 15:46> <Steffi Mi - Last Filed: 09/22/24 16:10> Clinical Impression: Symptomatic bradycardia Disposition: ADMITTED IP TO THIS HOSP Condition: Stable
--- NOTE | 2024-09-22 13:31 | US ---
EXAMINATION TYPE: US venous doppler duplex LE BI DATE OF EXAM: 09/22/2024 1:18 PM COMPARISON: NONE CLINICAL INDICATION: Male, 69 years old with history of bilateral calf tenderness; syncope, known low heart rate, pain in bilat calfs TECHNIQUE: The lower extremity deep venous system is examined utilizing real time linear array sonog joni with graded compression, color doppler sonography, and spectral doppler. SIDE PERFORMED: Bilat FINDINGS: VESSELS IMAGED: Common Femoral Vein Deep Femoral Vein Greater Saphenous Vein * Femoral Vein Popliteal Vein Small Saphenous Vein * Proximal Calf Veins (* superficial vessels) Right Leg: Negative for DVT, Color Doppler imaging shows patency of the vessels. Spectral waveforms are within normal limits. Left Leg: Negative for DVT, Color Doppler imaging shows patency of the vessels. Spectral waveforms a re within normal limits. IMPRESSION: No ultrasound evidence for deep venous thrombosis. [facility], , 09/22/2024 1:29 PM
[2024-09-22 13:40] LABS: ALT 21 U/L (4-49); AST 34 U/L (17-59); African American GFR (CKD) >90 (>60 ml/min/1.73 sqM); Albumin 4.4 g/dL (3.5-5.0); Alkaline Phosphatase 82 U/L (38-126); Anion Gap 11 mmol/L; Blood Urea Nitrogen 15 mg/dL (9-20); Calcium 9.4 mg/dL (8.4-10.2); Carbon Dioxide 24 mmol/L (22-30); Chloride 104 mmol/L (98-107); Glucose 119 mg/dL (74-99); Magnesium 2.5 mg/dL (1.6-2.3); Non-African American GFR(CKD) 83 (>60 ml/min/1.73 sqM); Potassium 4.1 mmol/L (3.5-5.1); Sodium 139 mmol/L (137-145); Total Bilirubin 0.7 mg/dL (0.2-1.3); Total Protein 6.9 g/dL (6.3-8.2)
[2024-09-22 13:41] LABS: Basophils % (A) 0 %; Eosinophils % (A) 0 %; HCT 44.8 % (39.0-53.0); HGB 14.8 gm/dL (13.0-17.5); Lymphocytes # (A) 0.7 k/uL (1.0-4.8); Lymphocytes % (A) 6 %; MCH 31.6 pg (25.0-35.0); MCHC 33.1 g/dL (31.0-37.0); MCV 95.5 fL (80.0-100.0); Mean Platelet Volume 9.2; Monocytes # (A) 0.6 k/uL (0-1.0); Monocytes % (A) 5 %; Neutrophils % (A) 88 %; Platelet Count 202 k/uL (150-450); RBC 4.69 m/uL (4.30-5.90); RDW 12.7 % (11.5-15.5); WBC 11.4 k/uL (3.8-10.6)
[2024-09-22 13:58] LABS: Partial Thromboplastin Time 21.3 sec (22.0-30.0); Prothrombin Time 10.8 sec (10.0-12.5)
--- NOTE | 2024-09-22 14:24 | XR ---
EXAMINATION TYPE: XR chest 2V DATE OF EXAM: 09/22/2024 2:06 PM COMPARISON: None CLINICAL INDICATION: Male, 69 years old with history of syncope; [facility] TECHNIQUE: XR chest 2V Frontal and lateral views of the chest. FINDINGS: Lungs/Pleura: There is no evidence of pleural effusion, focal consolidation, or pneumothorax. Pulmonary vascularity: Unremarkable. Heart/mediastinum: Cardiomediastinal silhouette is unremarkable. Musculoskeletal: No acute osseous pathology. IMPRESSION: No acute cardiopulmonary disease/process. [facility], , 09/22/2024 2:22 PM
[2024-09-22] MEDS ORDERED: BACLOFEN 10 MG TAB PO PRN (15:04)
[2024-09-22] MEDS ORDERED: NALOXONE 0.4 MG/ML 1 ML VIAL IV PRN (15:46)
--- NOTE | 2024-09-22 16:03 | P.HPIM ---
History of Present Illness H&P Date: 09/22/24 History of present illness: 69-year-old male patient with past medical history significant for hypertension, hyperlipidemia, GERD, osteoarthritis who presented to ED after having a syncopal episode. Patient was following cardiology for evaluation of bradycardia, had a Holter monitor for 24 hours, was noted to have heart rate as low as 34 recently had a stress test on 09/16/2024 which was abnormal no presented with a syncopal episode. Patient reported that he was working in his basement when he suddenly felt disoriented, also felt dizzy for few seconds, then passed out. Patient reported that he might be passed out for about 30 minutes. Patient felt weak afterwards. Denied any tongue bite, loss of bladder or bowel control, denied any confusion afterwards. Patient reported that he runs on the [employer] machine for 15 minutes 3 times weekly, also does bike riding, has been working out for more than 15 years regularly, reported a syncopal episode more than 15 years ago. Patient denied any fever, chills, shortness of breath, productive cough, sore throat, headache, vision changes, chest pain, palpitations, nausea vomiting diarrhea constipation abdominal pain dysuria urgency frequency weakness or numbness of extremities. In the ED patient is afebrile, bradycardic with heart rate 51, respiratory rate 20, blood pressure 138/64, orthostatics negative. Saturating 98% on room air. WBCs 11.4, hemoglobin 14.8, platelet 202. INR 1.0. BMP unremarkable. Liver profile unremarkable. TSH normal. Chest x-ray negative for acute process. EKG showed sinus bradycardia. Assessment and plan: Syncope: Bradycardia: Hypertension Hyperlipidemia Presented with a chief complaint of syncopal episode, found to be bradycardic in the ED. Was following cardiology as outpatient for bradycardia, was being evaluated for pacemaker placement, had a stress test on 09/16/2024 which was abnormal Monitor with telemetry Hold beta-angeli, calcium blockers Cardiology consult DVT prophylaxis SCD Monitor vital signs and labs Labs and medication were reviewed. Continue same treatment. Further recommendations as per clinical course of the patient PHYSICAL EXAMINATION: GENERAL: The patient is A&O x3, NAD HEENT: EOMI, Sclerae anicteric, Moist Mucous membranes Neck: Supple, Non tender, No JVD PULMONARY: Equal breath souds B/L, No wheezing, No crackles. CARDIOVASCULAR: S1, S2 present. No murmurs, rubs, or gallops. ABDOMEN: Soft, nontender, nondistended, normoactive bowel sounds. No guarding or rebound tenderness. MUSCULOSKELETAL: No edema, No cyanosis. No clubbing. Normal ROM. Intact peripheral pulses. NEUROLOGICAL: CN 2-12 grossly intact. No FND REVIEW OF SYSTEMS: CONSTITUTIONAL: No fever, no malaise, no fatigue. HEENT: No recent visual problems or hearing problems. Denied any sore throat. CARDIOVASCULAR: No chest pain, orthopnea, PND, no palpitations, no syncope. PULMONARY: No shortness of breath, no cough, no hemoptysis. GASTROINTESTINAL: No diarrhea, no nausea, no vomiting, no abdominal pain. NEUROLOGICAL: No headaches, no weakness, no numbness. HEMATOLOGICAL: Denies any bleeding or petechiae. GENITOURINARY: Denies any burning micturition, frequency, or urgency. MUSCULOSKELETAL/RHEUMATOLOGICAL: Denies any joint pain, swelling, or any muscle pain. ENDOCRINE: Denies any polyuria or polydipsia. The rest of the 14-point review of systems is negative. Dictation was produced using [employer] dictation software. please excuse any gr ammatical, word or spelling errors. Past Medical History Past Medical History: GERD/Reflux, Hyperlipidemia, Hypertension, Osteoarthritis (OA), Pneumonia Additional Past Medical History / Comment(s): DDD LOWER BACK, OCCASIONAL GERD, S TATES SOME ABDOMEN PAIN, STATES SLOW DIGESTIVE SYSTEM change in bowel habits,indigestions.has had a occasional cough last month,. Bradycardia History of Any Multi-Drug Resistant Organisms: None Reported Past Surgical History: Joint Replacement Additional Past Surgical History / Comment(s): oral surgery, TOTAL LEFT HIP (APR 2018) Past Anesthesia/Blood Transfusion Reactions: No Reported Reaction Past Psychological History: No Psychological Hx Reported Smoking Status: Never smoker Past Alcohol Use History: Occasional Past Drug Use History: None Reported - Past Family History Mother Family Medical History: Congestive Heart Failure (CHF), Vascular Disorder Father Family Medical History: Hypertension Medications and Allergies Home Medications Medication Instructions Recorded Confirmed Type Simvastatin [Zocor] 20 mg PO W/SUPPER 04/20/18 09/22/24 History ramipriL [Altace] 5 mg PO W/SUPPER 12/06/19 09/22/24 History Baclofen 10 - 20 mg PO HS PRN 09/22/24 09/22/24 History valACYclovir HCL [Valacyclovir] 1,000 mg PO DAILY PRN 09/22/24 09/22/24 History Allergies Allergy/AdvReac Type Severity Reaction Status Date / Time No Known Allergies Allergy Verified 09/22/24 11:38 Physical Exam Vitals: Vital Signs Temp Pulse Pulse Pulse Pulse Resp BP 09/22/24 13:20 51 L 20 138/64 09/22/24 12:29 55 L 62 48 L 18 09/22/24 10:55 97.3 F L 56 L 18 132/62 BP BP BP Pulse Ox 09/22/24 13:20 98 09/22/24 12:29 127/63 143/73 122/62 98 09/22/24 10:55 96 Intake and Output 09/22/24 09/22/24 09/22/24 06:59 14:59 22:59 Other: Weight 75.75 kg Results CBC & Chem 7: 09/22/24 12:37 09/22/24 12:37 Labs: Abnormal Lab Results - Last 24 Hours (Table) 09/22/24 09/22/24 09/22/24 Range/Units 12:37 12:37 12:37 WBC 11.4 H (3.8-10.6) k/uL Neutrophils # 10.0 H (1.3-7.7) k/uL Lymphocytes # 0.7 L (1.0-4.8) k/uL APTT 21.3 L (22.0-30.0) sec Glucose 119 H (74-99) mg/dL Magnesium 2.5 H (1.6-2.3) mg/dL
[2024-09-22] MEDS: ACETAMINOPHEN TAB 500 MG TAB PO PRN (17:48)
[2024-09-22] MEDS: lisinopriL 20 MG TAB PO SCH (17:49)
[2024-09-22] MEDS: ATORVASTATIN 10 MG TAB PO SCH (17:49)
[2024-09-23] MEDS ORDERED: NITROGLYCERIN SL TABS 0.4 MG TAB SUBLINGUAL PRN (09:43)
[2024-09-23] MEDS ORDERED: ALPRAZolam 0.25 MG TAB PO PRN (09:43)
[2024-09-23] MEDS ORDERED: ALPRAZolam 0.5 MG TAB PO PRN (09:43)
[2024-09-23] MEDS: ATORVASTATIN 80 MG TAB PO STA ×2 (09:55→10:02)
[2024-09-23] MEDS: ASPIRIN 325 MG TAB PO STA ×2 (09:55→10:02)
[2024-09-23] MEDS: SODIUM CHLORIDE 0.9% 1,000 ML IV ONE (10:30)
[2024-09-23] MEDS: fentaNYL (PF) 50 MCG/ML 2 ML AMP IVP ONE (10:30)
[2024-09-23] MEDS: MIDAZOLAM 2 MG/2 ML VIAL IVP ONE (10:30)
[2024-09-23] MEDS: LIDOCAINE 1% INJ 10MG/ML (20 ML MDV) SQ ONE ×2 (10:33→10:34)
[2024-09-23] MEDS: HEPARIN SODIUM,PORCINE (1 ML) 2,500 UNIT in SODIUM CHLORIDE 0.9% 250 ML IRRIGATION PRN (10:37)
[2024-09-23] MEDS: HEPARIN SODIUM,PORCINE 10,000 UNIT in SODIUM CHLORIDE 0.9% 1,000 ML IRRIGATION PRN (10:37)
[2024-09-23] MEDS: VERAPAMIL 2.5 MG/ML 2 ML AMP INTRAARTER ONE (10:40)
[2024-09-23] MEDS: HEPARIN SODIUM 1,000 UN/ML (10ML VL) IV ONE (10:43)
--- NOTE | 2024-09-23 11:03 | P.CRDCN ---
History of Present Illness History of present illness: HISTORY OF PRESENT ILLNESS: This is a 69-year-old male with a past medical history significant for hypertension and hyperlipidemia. 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 We have been asked to see the patient in consultation for bradycardia. Patient examined at the bedside. Patient presented to the hospital after having a syncopal episode at home. Patient states he was in the basement cleaning out a cat litter box when he got dizzy and passed out. He thinks that he was out for 30 minutes. He states when he woke up he felt achy. He denies any chest pain or shortness of breath. Denies any dizziness or lightheadedness at the time of examination. Denies any palpitations. Patient states he has always had a low heart rate. He recently underwent a 24-hour Holter monitor by his primary care physician and was told his heart rate was were in the 30s. DIAGNOSTICS: - EKG reveals sinus bradycardia with no signs of acute ischemia. No high grade AV block. - Chest xray negative for acute process. - Venous Doppler: Negative for DVT bilaterally - Laboratory data: WBC 11.4. Hemoglobin 14.8. Platelet count 202. Sodium 139. Potassium 4.1. BUN 15. Creatinine 0.93. Magnesium 2.5. TSH 2.720. - Current home cardiac medications include ramipril 5 mg daily and simvastatin 20 mg daily. - No previous echocardiogram noted in EMR - Patient underwent stress testing in August 2024 revealing abnormal stress stress test by EKG criteria with [address] depression noted in inferior lateral leads. REVIEW OF SYSTEMS: At the time of my exam: CONSTITUTIONAL: Denies fever or chills. HEENT: Denies blurred vision, vision changes, or eye pain. Denies hemoptysis CARDIOVASCULAR: Denies chest pain. Denies orthopnea. Denies PND. Denies palpitations RESPIRATORY: Denies shortness of breath. GASTROINTESTINAL: Denies abdominal pain. Denies nausea or vomiting. HEMATOLOGIC: Denies bleeding disorders. GENITOURINARY: Denies any blood in urine. SKIN: Denies pruitis. Denies rash. PHYSICAL EXAM: VITAL SIGNS: Reviewed. GENERAL: Well-developed in no acute distress. HEENT: Head is normocephalic. Pupils are equal, round. Sclerae anicteric. Mucous membranes of the mouth are moist. Neck supple. No JVD or thyromegaly LUNGS: Respirations even and unlabored. Lungs essentially clear to auscultation bilaterally. HEART: Regular rate and rhythm. S1 and S2 heard. ABDOMEN: Soft. Nondistended. Nontender. EXTREMITIES: Normal range of motion. No clubbing or cyanosis. Peripheral pulses intact. No lower extremity edema NEUROLOGIC: Awake and alert. Oriented x 3. ASSESSMENT: Syncope Sinus bradycardia with no significant high-grade AV block Recent abnormal stress test, August [address] depression in inferior lateral leads Hypertension Hyperlipidemia PLAN: Obtain 2D echo to assess cardiac structure and function Obtain records of Holter monitor from patient's PCP Check lipid panel and hemoglobin A1c Add aspirin 81 mg daily Recommend cardiac catheterization today due to recent abnormal stress test. Patient is agreeable. Patient to undergo cardiac catheterization today with Dr. Ridley Further recommendations pending patient course Nurse practitioner note has been reviewed by physician. Signing provider agrees with the documented findings, assessment, and plan of care documented by RADIOLOGIC TECHNOLOGY PROGRAM DIRECTOR as a scribe. Past Medical History Past Medical History: GERD/Reflux, Hyperlipidemia, Hypertension, Osteoarthritis (OA), Pneumonia Additional Past Medical History / Comment(s): DDD LOWER BACK, OCCASIONAL GERD, bradycardia History of Any Multi-Drug Resistant Organisms: None Reported Past Surgical History: Joint Replacement Additional Past Surgical History / Comment(s): oral surgery, TOTAL LEFT HIP (APR 2018) Past Anesthesia/Blood Transfusion Reactions: No Reported Reaction Past Psychological History: No Psychological Hx Reported Smoking Status: Never smoker Past Alcohol Use History: Occasional Past Drug Use History: None Reported - Past Family History Mother Family Medical History: Congestive Heart Failure (CHF), Vascular Disorder Father Family Medical History: Hypertension Medications and Allergies Home Medications Medication Instructions Recorded Confirmed Type Simvastatin [Zocor] 20 mg PO W/SUPPER 04/20/18 09/22/24 History ramipriL [Altace] 5 mg PO W/SUPPER 12/06/19 09/22/24 History Baclofen 10 - 20 mg PO HS PRN 09/22/24 09/22/24 History valACYclovir HCL [Valacyclovir] 1,000 mg PO DAILY PRN 09/22/24 09/22/24 History Allergies Allergy/AdvReac Type Severity Reaction Status Date / Time No Known Allergies Allergy Verified 09/22/24 11:38 Physical Exam Vitals: Vital Signs Temp Pulse Pulse Pulse Pulse Pulse Resp 09/23/24 03:37 98.1 F 84 19 09/23/24 02:00 50 L 09/22/24 23:46 98.1 F 56 L 18 09/22/24 20:00 55 L 09/22/24 19:40 99.4 F 55 L 16 09/22/24 19:02 99.0 F 60 18 09/22/24 18:14 98.7 F 57 L 16 09/22/24 13:20 51 L 20 09/22/24 12:29 55 L 62 48 L 18 09/22/24 10:55 97.3 F L 56 L 18 BP BP BP BP BP Pulse Ox 09/23/24 03:37 106/58 97 09/23/24 02:00 09/22/24 23:46 109/61 97 09/22/24 20:00 09/22/24 19:40 137/62 97 09/22/24 19:02 154/63 98 09/22/24 18:14 129/64 98 09/22/24 13:20 138/64 98 09/22/24 12:29 127/63 143/73 122/62 98 09/22/24 10:55 132/62 96 Intake and Output 09/22/24 09/23/24 09/23/24 22:59 06:59 14:59 Other: Voiding Method Toilet Toilet # Voids 1 Weight 75.75 kg 79.5 kg Results 09/22/24 12:37 09/22/24 12:37 Cardiac Enzymes 09/22/24 Range/Units 12:37 AST 34 (17-59) U/L Coagulation 09/22/24 Range/Units 12:37 PT 10.8 (10.0-12.5) sec APTT 21.3 L (22.0-30.0) sec CBC 09/22/24 Range/Units 12:37 WBC 11.4 H (3.8-10.6) k/uL RBC 4.69 (4.30-5.90) m/uL Hgb 14.8 (13.0-17.5) gm/dL Hct 44.8 (39.0-53.0) % Plt Count 202 (150-450) k/uL Comprehensive Metabolic Panel 09/22/24 Range/Units 12:37 Sodium 139 (137-145) mmol/L Potassium 4.1 (3.5-5.1) mmol/L Chloride 104 (98-107) mmol/L Carbon Dioxide 24 (22-30) mmol/L BUN 15 (9-20) mg/dL Creatinine 0.93 (0.66-1.25) mg/dL Glucose 119 H (74-99) mg/dL Calcium 9.4 (8.4-10.2) mg/dL AST 34 (17-59) U/L ALT 21 (4-49) U/L Alkaline Phosphatase 82 (38-126) U/L Total Protein 6.9 (6.3-8.2) g/dL Albumin 4.4 (3.5-5.0) g/dL Current Medications Generic Name Dose Route Start Last Admin Trade Name Freq PRN Reason Stop Dose Admin Acetaminophen 500 mg 09/22/24 16:04 09/22/24 17:48 Acetaminophen Tab 500 Mg Tab PO 500 mg Q6HR PRN Administration Fever and/ or Pain Atorvastatin Calcium 10 mg 09/22/24 17:30 09/22/24 17:49 Atorvastatin 10 Mg Tab PO 10 mg W/SUPPER RAYA Administration Baclofen 20 mg 09/22/24 15:04 Baclofen 10 Mg Tab PO HS PRN BACK PAIN Lisinopril 20 mg 09/22/24 17:30 09/22/24 17:49 Lisinopril 20 Mg Tab PO 20 mg W/SUPPER RAYA Administration Naloxone HCl 0.2 mg 09/22/24 15:46 Naloxone 0.4 Mg/Ml 1 Ml Vial IV Q2M PRN Opioid Reversal Intake and Output 09/22/24 09/23/24 09/23/24 22:59 06:59 14:59 Other: Voiding Method Toilet Toilet # Voids 1 Weight 75.75 kg 79.5 kg 09/22/24 12:37 09/22/24 12:37
--- NOTE | 2024-09-23 11:12 | P.CARDCATH ---
Date of Procedure: 09/23/24 Description of Procedure: DIAGNOSTIC CORONARY ANGIOGRAPHY and LEFT HEART CATH REPORT PROCEDURES PERFORMED: Left heart catheterization Selective coronary angiography Moderate conscious sedation 24 mins [Ultrasound assisted] Right radial access INDICATION: Abnormal stress test, syncope, symptomatic bradycardia BRIEF HPI: Patient is a 69-year-old male who has been dealing with low heart rates and some concerns of symptomatic bradycardia. For this he had a treadmill stress test on outpatient basis last week which showed stress-induced [address] depressions in inferior and lateral leads. He was able to achieve 7.1 METS. His resting heart rate was in 50s, and patient had appropriate chronotropic competence. Because of abnormal stress test and now presenting to the hospital with symptoms of syncope we offered to perform the cardiac catheterization to rule out any left main disease. CONSENT: I have explained the procedural steps of above-mentioned procedures in layman's terms to the patient. I discussed the risks (including but not limited to stroke, emergent vascular or cardiac surgery or ), benefits and alternative therapies for the above-mentioned procedure. I discussed the risks of sedation/analgesia and blood product administration (if indicated). The patient has indicated understanding and acceptance of these risks. Conscious Sedation: Patient's ECG, heart rate, blood pressure, pulse oximetry were monitored throughout the duration of procedure under my direct supervision. 1 mg Versed and 50 mcg Fentanyl were used for induction of moderate conscious sedation. Total duration of moderate concious sedation 24 minutes. PROCEDURAL DETAILS: Patient was prepped and draped in sterile fashion. 1% lidocaine was infiltrated over the right radial artery. Right radial access was obtained via modified seldinger technique. [Ultrasound was used for radial access]. Medications: 5mg of verapamil was administed in the radial sheet. 5000 Units of Heparin was administed once the catheter reached the aortic root Wires and Catheter used: J wire was advanced under fluroscopy to get to aortic root. 5 pashto JR 4 diagnostic catheter was utilized obtain left ventricular pressure and pressure gradint across aortic valve. 5 pashto JR 4 diagnostic catheter was used to selectively engage the right coronary ostium. 5 pashto JL4 diagnostic catheter was utilized to selectively engage the left coronary ostium. Angiographic images were reviewed in detail. Catheter and wire were removed. Radial sheet was flushed. The right radial sheath was removed and a TR band was placed. Patent hemostasis was achieved. The patient tolerated the procedure well. Patient was transported back to the post catheterization holding area in stable condition. TECHNICAL DETAILS Total radiation: 148 mGy Total fluro time: 3.7 minutes Total contrast used: Isovue 50 mL Complications: [none] Estimated Blood loss: less than 15 ml HEMODYNAMICS: Aortic Pressure: 119/60 mmHg. LV pressure: 118/5 mmHg. LVEDP 15 mmHg. There was no significant gradient across the aortic valve. SELECTIVE CORONARY ARTERIOGRAPHY: LEFT MAIN: The left main is short and large caliber vessel. It bifurcates into the LAD and circumflex. Left main appears angiographically normal. LEFT ANTERIOR DESCENDING CORONARY ARTERY: LAD is a large caliber vessel reaches up to the apex. Proximal LAD appears angiographically normal. Mid LAD appears angiographically normal. Distal LAD appears angiographically normal. Mid LAD gives rise to 2 medium size diagonal branches which appear angiographically patent. LEFT CIRCUMFLEX CORONARY ARTERY: It is nondominant vessel. Left circumflex is a moderate caliber vessel. It appears angiographically normal. Proximal LCx is gives rise to medium size OM1 branch which appears angiographically patent. RIGHT CORONARY ARTERY: Dominant vessel. The right coronary artery is a very la rge caliber vessel which gives PDA and PLV branch. RCA, PDA and PL branch appears angiographically patent. IMPRESSION: Angiographically normal coronary arteries as described above. Normal left sided filling pressures Ectopic atrial rhythm with heart rate in mid 50s on twelve-lead ECG in the Fire Protection Equipment Technician PLAN: 125 cc/h for 4 hours Continue telemetry monitoring Performing Physician Matthew Ridley MD, FACC, RPVI Thank you for allowing [facility] to participate in this patient's care. Feel free to reach out in case of any followup questions.
[2024-09-23] MEDS ORDERED: RX INFO: IV CONTRAST WAS GIVEN 1 EACH MISC MISCELLANE PRN (11:31)
[2024-09-23] MEDS: SODIUM CHLORIDE 0.9% 1,000 ML in EMPTY BAG 1 BAG IV SCH (11:40)
--- NOTE | 2024-09-23 13:45 | P.PN ---
Progress Note - Text Patient is scheduled Thursday at [facility] to molded goods spot picker a 7-day Holter monitor. Patient may come at anytime during business hours to molded goods spot picker monitor.
--- NOTE | 2024-09-23 14:34 | P.PN ---
Subjective Progress Note Date: 09/23/24 Interval History: 69-year-old male patient with past medical history significant for hypertension, hyperlipidemia, GERD, osteoarthritis who presented to ED after having a syncopal episode. Patient was following cardiology for evaluation of bradycardia, had a Holter monitor for 24 hours, was noted to have heart rate as low as 34 recently had a stress test on 09/16/2024 which was abnormal no presented with a syncopal episode. Patient reported that he was working in his basement when he suddenly felt disoriented, also felt dizzy for few seconds, then passed out. Patient reported that he might be passed out for about 30 minutes. Patient felt weak afterwards. Denied any tongue bite, loss of bladder or bowel control, denied any confusion afterwards. Patient reported that he runs on the [employer] machine for 15 minutes 3 times weekly, also does bike riding, has been working out for more than 15 years regularly, reported a syncopal episode more than 15 years ago. Patient denied any fever, chills, shortness of breath, productive cough, sore throat, headache, vision changes, chest pain, palpitations, nausea vomiting diarrhea constipation abdominal pain dysuria urgency frequency weakness or nu mbness of extremities. In the ED patient is afebrile, bradycardic with heart rate 51, respiratory rate 20, blood pressure 138/64, orthostatics negative. Saturating 98% on room air. WBCs 11.4, hemoglobin 14.8, platelet 202. INR 1.0. BMP unremarkable. Liver profile unremarkable. TSH normal. Chest x-ray negative for acute process. EKG showed sinus bradycardia. 09/23--patient was seen and examined today. Vital stable, heart rate in the 50s, patient asymptomatic. Underwent cardiac catheterization today which showed normal coronary arteries, normal left-sided filling pressure. Discussed with cardiology, recommended echocardiogram and 7 days Holter monitor. Echocardiogram pending. Patient scheduled to spanish moss picker 7-day Holter monitor on Thursday at [facility] office. Assessment and plan: Syncope: Bradycardia: Hypertension Hyperlipidemia Presented with a chief complaint of syncopal episode, found to be bradycardic in the ED. Was following cardiology as outpatient for bradycardia, was being evaluated for pacemaker placement, had a stress test on 09/16/2024 which was abnormal Monitor with telemetry Hold beta-angeli, calcium blockers Cardiology consulted--status post cardiac catheterization 09/23 that showed normal coronary arteries. Awaiting echocardiogram. Outpatient 7-day Holter monitor. DVT prophylaxis SCD Monitor vital signs and labs Labs and medication were reviewed. Continue same treatment. Further recommendations as per clinical course of the patient PHYSICAL EXAMINATION: GENERAL: The patient is A&O x3, NAD HEENT: EOMI, Sclerae anicteric, Moist Mucous membranes Neck: Supple, Non tender, No JVD PULMONARY: Equal breath souds B/L, No wheezing, No crackles. CARDIOVASCULAR: S1, S2 present. No murmurs, rubs, or gallops. ABDOMEN: Soft, nontender, nondistended, normoactive bowel sounds. No guarding or rebound tenderness. MUSCULOSKELETAL: No edema, No cyanosis. No clubbing. Normal ROM. Intact peripheral pulses. NEUROLOGICAL: CN 2-12 grossly intact. No FND Skin: No Rash REVIEW OF SYSTEMS: CONSTITUTIONAL: No fever or chills. CARDIOVASCULAR: No chest pain, palpitations or syncope. PULMONARY: No shortness of breath, no cough, sore throat. GASTROINTESTINAL: No nausea, vomiting, diarrhea, abdominal pain. : No Dysuria, urgency, frequency. Extremities: No edema. NEUROLOGICAL: No headaches, no weakness, or numbness Dictation was produced using Penemarie K Murphy dictation software. please excuse any grammatical, word or spelling errors. Objective - Vital Signs Vital signs: Vital Signs Temp 98.0 F 09/23/24 08:16 Pulse 51 L 09/23/24 14:00 Resp 18 09/23/24 14:00 BP 129/61 09/23/24 13:16 Pulse Ox 95 09/23/24 13:16 FiO2 Intake & Output 09/22/24 09/23/24 09/23/24 18:59 06:59 18:59 Intake Total 10 Balance 10 Weight 75.75 kg 79.5 kg Intake: IV 10 Invasive Line 1 10 Other: Voiding Method Toilet Toilet # Voids 1 - Labs CBC & Chem 7: 09/22/24 12:37 09/22/24 12:37
[2024-09-23 16:52] LABS: Chol/HDL Ratio 2.35 Ratio; LDL Cholesterol,Calculated 80.6 mg/dL (0.0-131.0); VLDL Calculation 17.16 mg/dL (5.00-40.00)
[2024-09-23] MEDS: SODIUM CHLORIDE 0.9% 1,000 ML IV SCH (18:31)
[2024-09-24 08:37] VITALS: PULSE 50
[2024-09-24] MEDS ORDERED: ASPIRIN 81 MG PO SCH (09:00)
[2024-09-24 12:01] VITALS: BP 113/56; RESP 18; TEMP 98
--- NOTE | 2024-09-24 14:05 | P.PN ---
Subjective Progress Note Date: 09/24/24 HISTORY OF PRESENT ILLNESS: This is a 69-year-old male with a past medical history significant for hype rtension and hyperlipidemia. 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 We have been asked to see the patient in consultation for bradycardia. Patient examined at the bedside. Patient presented to the hospital after having a syncopal episode at home. Patient states he was in the basement cleaning out a cat litter box when he got dizzy and passed out. He thinks that he was out for 30 minutes. He states when he woke up he felt achy. He denies any chest pain or shortness of breath. Denies any dizziness or lightheadedness at the time of examination. Denies any palpitations. Patient states he has always had a low heart rate. He recently underwent a 24-hour Holter monitor by his primary care physician and was told his heart rate was were in the 30s. DIAGNOSTICS: - EKG reveals sinus bradycardia with no signs of acute ischemia. No high grade AV block. - Chest xray negative for acute process. - Venous Doppler: Negative for DVT bilaterally - Laboratory data: WBC 11.4. Hemoglobin 14.8. Platelet count 202. Sodium 139. Potassium 4.1. BUN 15. Creatinine 0.93. Magnesium 2.5. TSH 2.720. - Current home cardiac medications include ramipril 5 mg daily and simvastatin 20 mg daily. - No previous echocardiogram noted in EMR - Patient underwent stress testing in August 2024 revealing abnormal stress stress test by EKG criteria with [address] depression noted in inferior lateral l arron. Progress note 09/24/2024 Patient's echocardiogram shows preserved LV size systolic function, moderate concentric LVH, no significant valvular dysfunction Patient's telemetry has continued to showed sinus bradycardia with no significant pauses. Denies any chest pain chest pressure palpitation lightheadedness dizziness. Hemodynamically stable otherwise No complications after the cardiac ablation with good radial pulse of the right side PHYSICAL EXAM: VITAL SIGNS: Reviewed. GENERAL: Well-developed in no acute distress. HEENT: Head is normocephalic. Pupils are equal, round. Sclerae anicteric. Mucous membranes of the mouth are moist. Neck supple. No JVD or thyromegaly LUNGS: Respirations even and unlabored. Lungs essentially clear to auscultation bilaterally. HEART: Regular rate and rhythm. S1 and S2 heard. ABDOMEN: Soft. Nondistended. Nontender. EXTREMITIES: Normal range of motion. No clubbing or cyanosis. Peripheral pulses intact. No lower extremity edema NEUROLOGIC: Awake and alert. Oriented x 3. ASSESSMENT: Syncope Sinus bradycardia with no significant high-grade AV block Recent abnormal stress test, August [address] depression in inferior lateral leads Hypertension Hyperlipidemia Cardiac testing LDL 80, A1c is within normal limits Cardiac catheterization did not show any obstructive coronary artery disease Echo shows preserved LVEF 55%, moderate concentric LVH no history of valvular abnormality PLAN: Continue lisinopril. Avoid AV louann blockers Continue Lipitor 10 mg discontinue aspirin Cleared to be discharged from cardiovascular standpoint 7-day extended Holter monitor to be picked up from the office on Thursday Instructions given to the patient Follow-up after the Holter monitor and outpatient cardiology office with Dr. Ridley Objective - Vital Signs Vital signs: Vital Signs Temp 98.0 F 09/24/24 12:00 Pulse 50 L 09/24/24 08:35 Resp 18 09/24/24 12:00 BP 113/56 09/24/24 12:00 Pulse Ox 100 09/24/24 12:00 FiO2 Intake & Output 09/23/24 09/24/24 09/24/24 18:59 06:59 18:59 Intake Total 1146 10 480 Balance 1146 10 480 Weight 79.4 kg Intake: IV 10 10 Invasive Line 1 10 Invasive Line 2 10 Intake, IV Titration 900 Amount Sodium Chloride 0.9% 1, 900 000 ml @ 125 mls/hr IV . Q8H RAYA Rx#:[id number] Oral 236 480 Other: Voiding Method Toilet Toilet Toilet # Voids 1 1 - Labs CBC & Chem 7: 09/22/24 12:37 09/22/24 12:37 Labs: Abnormal Lab Results - Last 24 Hours (Table) 09/23/24 Range/Units 07:54 HDL Cholesterol 72.20 H (40.00-60.00) mg/dL
--- NOTE | 2024-09-24 14:07 | CA ---
Transthoracic Echo Report Name: Adan Vo Age: 69 Gender: M : 1955 Exam Date: 09/23/2024 13:41 Exam Location: [facility] Ht (in): 71 Wt (lb): 175 Ordering Physician: Rozina Uriostegui Attending/Referring Phys: [id number], Gila Chemical Worker Charley Brito RDCS Procedure CPT: Indications: LV function, bradycardia, syncope Cardiac Hx: Technical Quality: Good Contrast 1: Total Dose (mL): Contrast 2: Total Dose (mL): MEASUREMENTS (Male / Female) Normal Values 2D ECHO LV Diastolic Diameter PLAX 5.2 cm 4.2 - 5.9 / 3.9 - 5.3 cm LV Systolic Diameter PLAX 3.3 cm IVS Diastolic Thickness 1.5 cm 0.6 - 1.0 / 0.6 - 0.9 cm LVPW Diastolic Thickness 1.3 cm 0.6 - 1.0 / 0.6 - 0.9 cm LV Relative Wall Thickness 0.5 RV Internal Dim ED PLAX 3.4 cm LA Systolic Diameter LX 4.2 cm 3.0 - 4.0 / 2.7 - 3.8 cm LV Diastolic Volume MOD 4C 135.7 cm??? LV Systolic Volume MOD 4C 38.1 cm??? LV Ejection Fraction MOD 4C 71.9 % LV Cardiac Index MOD 4C 2636.7 cm???/min???m??? LV Diastolic Length 4C 9.4 cm LV Systolic Length 4C 7.0 cm LV Diastolic Volume MOD 2C 82.2 cm??? LV Systolic Volume MOD 2C 21.2 cm??? LV Ejection Fraction MOD 2C 74.2 % LV Cardiac Index MOD 2C 1647.7 cm???/min???m??? LV Diastolic Length 2C 9.2 cm LV Systolic Length 2C 7.2 cm M-MODE Aortic Root Diameter MM 3.5 cm DOPPLER AV Peak Velocity 207.2 cm/s AV Peak Gradient 17.2 mmHg AI Peak Velocity 411.3 cm/s AI Peak Gradient 67.7 mmHg AI Pressure Half Time 657.3 ms Mitral E Point Velocity 88.0 cm/s Mitral A Point Velocity 50.8 cm/s Mitral E to A Ratio 1.7 MV Deceleration Time 201.1 ms TR Peak Velocity 271.0 cm/s TR Peak Gradient 29.4 mmHg Right Ventricular Systolic Press 39.5 mmHg FINDINGS Left Ventricle Left ventricular ejection fraction is estimated at 55-60 %. Left ventricular cavity size normal. Moderate concentric left ventricular hypertrophy. Normal left ventricular wall motion. Right Ventricle Mild right ventricular dilatation. Mild pulmonary hypertension. Right Atrium Mild right atrial dilatation. No right atrial thrombus or mass seen. Left Atrium Mildly increased left atrial diameter. No left atrial thrombus or mass present. Mitral Valve Structurally normal mitral valve. No evidence for mitral valve prolapse. No mitral stenosis. Trace mitral regurgitation. Aortic Valve Trileaflet aortic valve. No aortic stenosis. Mild aortic regurgitation. Tricuspid Valve Structurally normal tricuspid valve. Mild tricuspid regurgitation. Pulmonic Valve Structurally normal pulmonic valve. Trace pulmonic regurgitation. Pericardium No pericardial effusion. Aorta Normal size aortic root and proximal ascending aorta. CONCLUSIONS Left ventricular ejection fraction is estimated at 55-60 %. Moderate concentric left ventricular hypertrophy. Mild biatrial dilatation No significant valvular dysfunction Previewed by: Dr Matthew Ridley (Electronically Signed) Final Date: 24 September 2024 14:05
--- NOTE | 2024-09-24 14:38 | P.PN ---
Subjective Progress Note Date: 09/24/24 69-year-old male patient with past medical history significant for hypertension, hyperlipidemia, GERD, osteoarthritis who presented to ED after having a syncopal episode. Patient was following cardiology for evaluation of bradycardia, had a Holter monitor for 24 hours, was noted to have heart rate as low as 34 recently had a stress test on 09/16/2024 which was abnormal no presented with a syncopal episode. Patient reported that he was working in his basement when he suddenly felt disoriented, also felt dizzy for few seconds, then passed out. Patient reported that he might be passed out for about 30 minutes. Patient felt weak afterwards. Denied any tongue bite, loss of bladder or bowel control, denied any confusion afterwards. Patient reported that he runs on the [employer] machine for 15 minutes 3 times weekly, also does bike riding, has been working out for more than 15 years regularly, reported a syncopal episode more than 15 years ago. Patient denied any fever, chills, shortness of breath, productive cough, sore throat, headache, vision changes, chest pain, palpitations, nausea vomiting diarrhea constipation abdominal pain dysuria urgency frequency weakness or numbness of extremities. In the ED patient is afebrile, bradycardic with heart rate 51, respiratory rate 20, blood pressure 138/64, orthostatics negative. Saturating 98% on room air. WBCs 11.4, hemoglobin 14.8, platelet 202. INR 1.0. BMP unremarkable. Liver profile unremarkable. TSH normal. Chest x-ray negative for acute process. EKG showed sinus bradycardia. 09/23--patient was seen and examined today. Vital stable, heart rate in the 50s, patient asymptomatic. Underwent cardiac catheterization today which showed normal coronary arteries, normal left-sided filling pressure. Discussed with cardiology, recommended echocardiogram and 7 days Holter monitor. Echocardiogram pending. Patient scheduled to slate picker 7-day Holter monitor on Thursday at [facility] office. 09/24. Patient seen and examined. Denies any chest pain. Any shortness of breath. No complaint of lightheadedness or dizziness. Vital signs stable REVIEW OF SYSTEMS: CONSTITUTIONAL: No fever, no malaise,. CARDIOVASCULAR: No chest pain, no palpitations, no syncope. PULMONARY: No shortness of breath, no cough, GASTROINTESTINAL: No diarrhea, no nausea, no vomiting, no abdominal pain. NEUROLOGICAL: No headaches, no weakness, PHYSICAL EXAMINATION: GENERAL: The patient is alert and oriented x3, not in any acute distress. Well developed, well nourished. HEENT: Pupils are round and equally reacting to light. EOMI. No scleral icterus. No conjunctival pallor. Normocephalic, atraumatic. No pharyngeal erythema. No th yromegaly. CARDIOVASCULAR: S1 and S2 present. No murmurs, rubs, or gallops. PULMONARY: Chest is clear to auscultation, no wheezing or crackles. ABDOMEN: Soft, nontender, nondistended, normoactive bowel sounds. No palpable organomegaly. MUSCULOSKELETAL: No joint swelling or deformity. EXTREMITIES: No cyanosis, clubbing, or pedal edema. NEUROLOGICAL: Gross neurological examination did not reveal any focal deficits. SKIN: No rashes. Assessment and plan Syncope: Bradycardia: Hypertension Hyperlipidemia Presented with a chief complaint of syncopal episode, found to be bradycardic in the ED. Was following cardiology as outpatient for bradycardia, was being evaluated for pacemaker placement, had a stress test on 09/16/2024 which was abnormal Monitor with telemetry Hold beta-angeli, calcium blockers Cardiology consulted--status post cardiac catheterization 09/23 that showed normal coronary arteries. Awaiting echocardiogram. Outpatient 7-day Holter monitor. Labs and medication were reviewed.. Continue same treatment. Continue with symptomatic treatment. Resume home medication. Monitor labs and vitals. DVT and GI prophylaxis. Further recommendations as per clinical course of the patient Dictation was produced using [employer] dictation software. please excuse any grammatical, word or spelling errors. Objective - Vital Signs Vital signs: Vital Signs Temp 98.6 F 09/24/24 03:50 Pulse 50 L 09/24/24 08:35 Resp 15 09/24/24 08:35 BP 120/54 09/24/24 08:35 Pulse Ox 97 09/24/24 08:35 FiO2 Intake & Output 09/23/24 09/24/24 09/24/24 18:59 06:59 18:59 Intake Total 1146 10 240 Balance 1146 10 240 Weight 79.4 kg Intake: IV 10 10 Invasive Line 1 10 Invasive Line 2 10 Intake, IV Titration 900 Amount Sodium Chloride 0.9% 1, 900 000 ml @ 125 mls/hr IV . Q8H [facility] Rx#:[id number] Oral 236 240 Other: Voiding Method Toilet Toilet # Voids 1 1 - Labs CBC & Chem 7: 09/22/24 12:37 09/22/24 12:37 Labs: Abnormal Lab Results - Last 24 Hours (Table) 09/23/24 Range/Units 07:54 HDL Cholesterol 72.20 H (40.00-60.00) mg/dL
--- NOTE | 2024-09-25 10:28 | P.DS ---
Providers Date of admission: 09/22/24 15:47 Expected date of discharge: 09/24/24 Attending physician: Umer Lee Consults: 09/22/24 15:03 Consult Physician Routine Consulting Provider: Matthew Ridley Consult Reason/Comments: Symptomatic bradycardia, pacemaker evaluation Do you want consulting provider notified?: Yes Primary care physician: Brock Cai MD Hospital Course: Discharge diagnoses; Syncope: Bradycardia: Hypertension Hyperlipidemia Presented with a chief complaint of syncopal episode, found to be bradycardic in the ED. Was following cardiology as outpatient for bradycardia, was being evaluated for pacemaker placement, had a stress test on 09/16/2024 which was abnormal Hold beta-angeli, calcium blockers Cardiology consulted--status post cardiac catheterization 09/23 that showed normal coronary arteries. Outpatient 7-day Holter monitor. Hospital course; 69-year-old male patient with past medical history significant for hypertension, hyperlipidemia, GERD, osteoarthritis who presented to ED after having a syncopal episode. Patient was following cardiology for evaluation of bradycardia, had a Holter monitor for 24 hours, was noted to have heart rate as low as 34 recently had a stress test on 09/16/2024 which was abnormal no presented with a syncopal episode. Patient reported that he was working in his basement when he suddenly felt disoriented, also felt dizzy for few seconds, then passed out. Patient reported that he might be passed out for about 30 minutes. Patient felt weak afterwards. Denied any tongue bite, loss of bladder or bowel control, denied any confusion afterwards. Patient reported that he runs on the [employer] machine for 15 minutes 3 times weekly, also does bike riding, has been working out for more than 15 years regularly, reported a syncopal episode more than 15 years ago. Patient denied any fever, chills, shortness of breath, productive cough, sore throat, headache, vision changes, chest pain, palpitations, nausea vomiting diarrhea constipation abdominal pain dysuria urgency frequency weakness or numbness of extremities. In the ED patient is afebrile, bradycardic with heart rate 51, respiratory rate 20, blood pressure 138/64, orthostatics negative. Saturating 98% on room air. WBCs 11.4, hemoglobin 14.8, platelet 202. INR 1.0. BMP unremarkable. Liver profile unremarkable. TSH normal. Chest x-ray negative for acute process. EKG showed sinus bradycardia. 09/23--patient was seen and examined today. Vital stable, heart rate in the 50s, patient asymptomatic. Underwent cardiac catheterization today which showed normal coronary arteries, normal left-sided filling pressure. Discussed with cardiology, recommended echocardiogram and 7 days Holter monitor. Echocardiogram pending. Patient scheduled to nut picker 7-day Holter monitor on Thursday at [facility] office. 09/24. Patient seen and examined. Denies any chest pain. Any shortness of breath. No complaint of lightheadedness or dizziness. Vital signs stable. Cardiology cleared the patient for discharge PHYSICAL EXAMINATION: GENERAL: The patient is alert and oriented x3, not in any acute distress. Well developed, well nourished. HEENT: Pupils are round and equally reacting to light. EOMI. No scleral icterus. No conjunctival pallor. Normocephalic, atraumatic. No pharyngeal erythema. No thyromegaly. CARDIOVASCULAR: S1 and S2 present. No murmurs, rubs, or gallops. PULMONARY: Chest is clear to auscultation, no wheezing or crackles. ABDOMEN: Soft, nontender, nondistended, normoactive bowel sounds. No palpable organomegaly. MUSCULOSKELETAL: No joint swelling or deformity. EXTREMITIES: No cyanosis, clubbing, or pedal edema. NEUROLOGICAL: Gross neurological examination did not reveal any focal deficits. SKIN: No rashes. Dictation was produced using [employer] dictation software. please excuse any grammatical, word or spelling errors. Patient Condition at Discharge: Stable Plan - Discharge Summary Discharge Rx Participant: Yes New Discharge Prescriptions: Continue Simvastatin [Zocor] 20 mg PO W/SUPPER ramipriL [Altace] 5 mg PO W/SUPPER valACYclovir HCL [Valacyclovir] 1,000 mg PO DAILY PRN PRN Reason: Cold Sores Baclofen 10 - 20 mg PO HS PRN PRN Reason: BACK PAIN Discharge Medication List Simvastatin [Zocor] 20 mg PO W/SUPPER 04/20/18 [History] ramipriL [Altace] 5 mg PO W/SUPPER 12/06/19 [History] Baclofen 10 - 20 mg PO HS PRN 09/22/24 [History] valACYclovir HCL [Valacyclovir] 1,000 mg PO DAILY PRN 04/03/25 [History] Follow up Appointment(s)/Referral(s): Matthew Ridley MD [Medical Doctor] - 1 Week Brock Cai MD [Primary Care Provider] - 1-2 days Patient Instructions/Handouts: Syncope (GEN) Discharge Disposition: HOME SELF-CARE
== END 2024-09-24 16:21 | disposition home or self-care (01) ==
LOC: EC 10:52 → INTOOBSV 15:47 → 3SCARD 15:47
PROVIDERS: ADMIT Hospitalist; ATTEND Hospitalist
DX: R55 Syncope and collapse (principal); R00.1 Bradycardia, unspecified; I10 Essential (primary) hypertension; E78.5 Hyperlipidemia, unspecified; K21.9 Gastro-esophageal reflux disease without esophagitis; Z79.899 Other long term (current) drug therapy; Z82.49 Family history of ischemic heart disease and other diseases of the circulatory system
CPT/HCPCS: 99285; 36415; 93005; 93306; 93458; 80061; 80053; 83735; 84443; 85025; 85610; 85730; 83036; 71046; 93970; G0378 ×3; C1894; C1769; J2250; J1644 ×3; J2003; J3010

== ENCOUNTER 2024-11-03 12:15 | Day surgery (SDC) | payer MEDICARE ==
[~2024-11-03 12:15] MED LIST changes: -LACTATED RINGERS 1,000 ML IV ONE; -LACTATED RINGERS 1,000 ML IV SCH; -MIDAZOLAM 2 MG/2 ML VIAL ONE; -PROPOFOL 10 MG/ML 20 ML VIAL IV ONE; +SODIUM CHLORIDE 0.9% 1,000 ML IV SCH; -fentaNYL (PF) 50 MCG/ML 2 ML AMP ONE
[2024-11-03] MEDS: SODIUM CHLORIDE 0.9% 500 ML 500 ML IV ONE (13:05)
[2024-11-03 13:17] VITALS: BP 138/66; PULSE 48; RESP 16; TEMP 98
[2024-11-03] MEDS: IV FLUID CONTINUATION 500 ML IV ONE (14:48)
[2024-11-03] MEDS: ceFAZolin 2 GM in DEXTROSE 5% IN WATER 50 ML IVPB ONE (14:48)
[2024-11-03] MEDS: LIDOCAINE 1% INJ 10MG/ML (20 ML MDV) SQ ONE (14:52)
--- NOTE | 2024-11-03 16:48 | P.EPPROC ---
- EP Procedure Note Electrophysiology Procedure Note: Loop monitor implant, Bruno device under local anesthesia Primary physicians: Tin Flipper: Dr. Gonzalez Indication: Syncope with trauma Patient was brought to the EP lab in a fasting state. Written informed consent was obtained prior to the procedure. The left pectoral area was prepped and draped per protocol. Intravenous antibiotic was administered preoperatively. A subcutaneous Loop monitor was implanted successfully and the wound was closed per protocol. The device was programmed to detect significant tara- arrhythmic and tachy-arrhythmic events, per protocol. Device and programming details: Syncope protocol
--- NOTE | 2024-11-03 16:53 | P.EPPROC ---
- EP Procedure Note Electrophysiology Procedure Note: Gnosis Syncope with trauma Twelve-lead EKG shows sinus rhythm normal [place] narrow QRS early repolarization abnormality, subtle Tilt table test per protocol Baseline blood pressure 127/65 mmHg, baseline heart rate 54 beats minute Patient was tilted upright on maculas 70 degrees per protocol No significant change in heart rate or blood pressure No evidence for neurocardiogenic syncope She was laid supine at the end of the procedure Impression Twelve-lead EKG shows sinus bradycardia at 45 beats a minute at rest Normal tilt table test with normal heart rate and blood pressure response
== END 2024-11-03 15:37 | disposition home or self-care (01) ==
LOC: CATHEP 12:15
PROVIDERS: ATTEND Internal Medicine Clinical Cardiac Electrophysiology
DX: R55 Syncope and collapse (principal); I10 Essential (primary) hypertension; E78.5 Hyperlipidemia, unspecified; Z79.899 Other long term (current) drug therapy
CPT/HCPCS: 93660; 33285; C1764; J0690; J2003